=== PATIENT | female | born 1955 | race Caucasian/White ===

== ENCOUNTER 2020-06-01 10:19 | Outpatient (REF) | payer MEDICAID, SELFPAY ==
[2020-06-01 12:23] LABS: Alanine Aminotransferase 16 U/L (0-31); Albumin Level 4.1 g/dL (3.5-5.0); Alkaline Phosphatase 92 U/L (39-117); Anion Gap 14 (12-20); Aspartate Amino Transferase 15 U/L (5-31); Bilirubin Total 0.6 mg/dL (0.0-1.0); Blood Urea Nitrogen 15 mg/dL (9-16); Calcium 9.1 mg/dL (8.4-10.2); Carbon Dioxide 26 mmol/L (22-29); Chloride 104 mmol/L (96-108); Cholesterol 167 mg/dL; Estimated Glomerular Filt Rate > 60; Glucose Random 98 mg/dL (60-115); HDL Cholesterol 58 mg/dL; LDL Cholesterol Calculated 91 mg/dl; Potassium 4.1 mmol/l (3.3-5.1); Sodium 140 mmol/L (135-145); Total Protein 7.5 g/dL (6.5-8.0); Triglycerides 91 mg/dL
[2020-06-01 14:21] LABS: Reflex LDLD? No
== END 2020-06-01 10:20 | disposition home or self-care (01) ==
LOC: HO.LAB 10:19
PROVIDERS: PCP Internal Medicine; Visit Provider Internal Medicine
DX: Z00.00 Encounter for general adult medical examination without abnormal findings (principal); I12.9 Hypertensive chronic kidney disease with stage 1 through stage 4 chronic kidney disease, or unspecified chronic kidney disease; N18.9 Chronic kidney disease, unspecified; E78.00 Pure hypercholesterolemia, unspecified; K21.9 Gastro-esophageal reflux disease without esophagitis; R10.13 Epigastric pain
CPT/HCPCS: 80053; 80061

== ENCOUNTER 2020-06-02 13:14 | Outpatient (REF) | payer MEDICAID, SELFPAY | END 2020-06-02 13:15 | disposition home or self-care (01) | LOC: HO.LNP 13:14 | PROVIDERS: Visit Provider Internal Medicine | DX: Z00.00 Encounter for general adult medical examination without abnormal findings (principal); E78.00 Pure hypercholesterolemia, unspecified; I12.9 Hypertensive chronic kidney disease with stage 1 through stage 4 chronic kidney disease, or unspecified chronic kidney disease; K21.9 Gastro-esophageal reflux disease without esophagitis; R10.13 Epigastric pain | CPT/HCPCS: 87338 ==

== ENCOUNTER 2020-06-28 14:24 | Outpatient (REF) | payer MEDICAID, SELFPAY ==
[2020-07-04 03:18] LABS: HPV 16 RNA NOT DETECTED (NOT DETECTED); HPV mRNA E6/E7 rflx Detected (Not Detected)
== END 2020-06-28 14:25 | disposition home or self-care (01) ==
LOC: HO.LAB 14:24
PROVIDERS: PCP Internal Medicine; Visit Provider Advanced Practice Midwife
DX: Z12.4 Encounter for screening for malignant neoplasm of cervix (principal); R87.619 Unspecified abnormal cytological findings in specimens from cervix uteri
CPT/HCPCS: 87624; 87625; 88141; 88142

== ENCOUNTER 2020-07-31 14:05 | Outpatient (REF) | payer MEDICAID, SELFPAY | END 2020-07-31 14:06 | disposition home or self-care (01) | LOC: HO.LNP 14:05 | PROVIDERS: PCP Internal Medicine; Visit Provider Obstetrics & Gynecology | DX: R87.610 Atypical squamous cells of undetermined significance on cytologic smear of cervix (ASC-US) (principal) | CPT/HCPCS: 57454; 88305 ==

== ENCOUNTER → 2020-08-16 15:52 | Outpatient (BNVA) | payer MEDICAID, SELFPAY | PROVIDERS: PCP Internal Medicine; Visit Provider Obstetrics & Gynecology ==

== ENCOUNTER → 2020-08-30 09:51 | Outpatient (BNVA) | payer MEDICAID, SELFPAY | PROVIDERS: PCP Internal Medicine; Visit Provider Obstetrics & Gynecology | DX: N87.0 Mild cervical dysplasia (principal) | CPT/HCPCS: 99212 ==

== ENCOUNTER 2020-09-05 14:26 | Outpatient (REF) | payer MEDICAID, SELFPAY | END 2020-09-05 14:27 | disposition home or self-care (01) | LOC: HO.HOSX 14:26 | PROVIDERS: Visit Provider Orthopaedic Surgery | DX: Z13.89 Encounter for screening for other disorder (principal) ==

== ENCOUNTER 2020-09-06 14:04 | Outpatient (REF) | payer MEDICAID, SELFPAY ==
--- NOTE | ~2020-09-06 | XR_ITS ---
EXAMINATION: XR KNEE, LEFT XR KNEE STANDING, BILATERAL CLINICAL INFORMATION: Pain left knee. COMPARISON: None TECHNIQUE: AP bilateral knees standing. Left knee 1 view. FINDINGS: AP BILATERAL KNEE: There is a total left knee prosthesis with prosthetic components in satisfactory alignment. There is mild loss of medial compartment right knee joint with a small loose body noted. LEFT KNEE: There is a total left knee prosthesis with prosthetic components in satisfactory alignment. No evidence of loosening. No abnormal joint effusion seen. XR/XR knee LT 2V IMPRESSION: Total left knee prosthesis in satisfactory position. No prosthetic loosening. No abnormal joint effusion. Mild reduction of right knee medial compartment joint space. Likely early osteoarthritis.
--- NOTE | ~2020-09-06 | XR_ITS ---
EXAMINATION: XR KNEE, LEFT XR KNEE STANDING, BILATERAL CLINICAL INFORMATION: Pain left knee. COMPARISON: None TECHNIQUE: AP bilateral knees standing. Left knee 1 view. FINDINGS: AP BILATERAL KNEE: There is a total left knee prosthesis with prosthetic components in satisfactory alignment. There is mild loss of medial compartment right knee joint with a small loose body noted. LEFT KNEE: There is a total left knee prosthesis with prosthetic components in satisfactory alignment. No evidence of loosening. No abnormal joint effusion seen. XR/XR knee standing BI IMPRESSION: Total left knee prosthesis in satisfactory position. No prosthetic loosening. No abnormal joint effusion. Mild reduction of right knee medial compartment joint space. Likely early osteoarthritis.
== END 2020-09-06 14:05 | disposition home or self-care (01) ==
LOC: HO.HOSX 14:04
PROVIDERS: PCP Internal Medicine; Visit Provider Orthopaedic Surgery
DX: M25.562 Pain in left knee (principal); M25.561 Pain in right knee; Z96.652 Presence of left artificial knee joint
CPT/HCPCS: 73560; 73565; 99212

== ENCOUNTER 2020-09-08 08:58 | Outpatient (REF) | payer MEDICAID, SELFPAY ==
[2020-09-08 09:04] VITALS: BP 162/91; PULSE 63; RESP 18; TEMP 36.8; O2SAT 99; BMI 38.5
--- NOTE | 2020-09-08 09:26 | MHC.SHP ---
Pre-Procedural Eval Section A The patient is an INPATIENT: No Changes since office visit: No Cold of Flu in the past 2 weeks, No New Medical Problems, No Changes in Medication and No Patient answered all questions The History & Physical has been completed within 30 days and I have reviewed it.: Yes Section B Chief Complaint: CIN1 Allergies: Allergies Allergy/AdvReac Type Severity Reaction Status Date / Time acetaminophen [Percocet] Allergy Unknown upset Verified 08/30/20 09:54 stomach oxycodone [OXYCODONE] AdvReac Intermediate NAUSEA, Verified 08/30/20 09:54 VOMITING,HEADACHE Plan Diagnosis/Plan: Unchanged I have reviewed the history and physical and performed a pertinent physical examination on my patient. No changes have occurred unless specified.
--- NOTE | 2020-09-08 09:26 | W.PM.OPN ---
Operative Note Operative Note Date of Service: 06/09/20 Narrative: Preop diagnosis: Persistent HARSHAL 1 with negative ECC Operation: LEEP Post op diagnosis: same Anesthesia: paracervical block Complications: none Pathology: Anterior and Posterior cervical lip QBL: minimal Procedure: The patient was put in the dorsal lithotomy position, was prepped and draped in the usual sterile fashion. A sterile speculum was inserted inside the patient vagina. Using Lugol solution the cervix with Dyed with Lugol solution to identifiy the abnormal demarcating line. 10 cc of Marcaine0.5% without epinephrine were given at 2,4 , 8, and 10 o'clock. Using a medium-size loop wire, the anterior cervical lip was excised followed by the posterior cervical lip and endocervix. Hemostasis was assured using cautery and Monsel solution. All instruments were taken out of the patient's vaginal cavity. the patient tolerated the procedure well and was discharged home with the following instructions: call if temperature is above 100.4, vaginal bleeding, abdominal pain or nausea or vomiting. Follow-up in the office in 2 weeks for postop visit
== END 2020-09-08 08:59 | disposition home or self-care (01) ==
LOC: HO.MS 08:58
PROVIDERS: PCP Internal Medicine; Visit Provider Obstetrics & Gynecology
PROC: 0UBC7ZZ Excision of Cervix, Via Natural or Artificial Opening (ICD-10-PCS; CPT 57522; principal; 2020-09-08 09:20)
DX: N87.0 Mild cervical dysplasia (principal); I10 Essential (primary) hypertension; Z88.8 Allergy status to other drugs, medicaments and biological substances; Z79.899 Other long term (current) drug therapy
CPT/HCPCS: 57522; 88307

== ENCOUNTER → 2020-09-21 14:52 | Outpatient (BNVA) | payer MEDICAID, SELFPAY | PROVIDERS: PCP Internal Medicine; Visit Provider Internal Medicine Cardiovascular Disease | DX: N87.0 Mild cervical dysplasia (principal); I25.42 Coronary artery dissection; I10 Essential (primary) hypertension | CPT/HCPCS: 93005; 99212 ==

== ENCOUNTER 2020-12-21 08:08 | Outpatient (REF) | payer MEDICAID, SELFPAY ==
[2020-12-21 08:55] LABS: MANUAL DIFF FLAG NO
[2020-12-21 09:00] LABS: Basophils Absolute Auto 0.1 X10*3/uL (0.0-0.2); Basophils Percent Auto 0.7 % (0-2); Eosinophils Absolute Auto 0.4 X10*3/uL (0.0-0.4); Hemoglobin 12.9 g/dl (12.0-16.0); Imm Gran Abs Auto 0.03 X10*3/uL (0.00-0.03); Imm Gran Pct Auto 0.3 % (0.0-0.4); Lymphocytes Absolute Auto 2.4 X10*3/uL (1.2-4.9); Lymphocytes Percent Auto 24.8 % (20-40); Mean Corpuscular HGB Conc 31.5 g/dl (31.0-35.0); Mean Corpuscular Hemoglobin 27.9 pg (27.0-33.0); Mean Corpuscular Volume 88.7 fL (80-98); Monocytes Absolute Auto 0.6 X10*3/uL (0.1-1.2); Monocytes Percent Auto 6.4 % (2-11); Neutrophils Absolute Auto 6.1 X10*3/uL (2.0-8.3); Neutrophils Percent Auto 63.8 % (45-73); Platelet Count 261 X10*3/uL (160-400); Red Blood Count 4.62 X10*6/uL (4.20-5.50); Red Cell Distribution Width 15.4 % (11.0-16.0); White Blood Count 9.6 X10*3/uL (4.8-10.8)
[2020-12-21 09:35] LABS: Alanine Aminotransferase 17 U/L (0-31); Alkaline Phosphatase 89 U/L (39-117); Anion Gap 11 (12-20); Aspartate Amino Transferase 17 U/L (5-31); Bilirubin Total 0.5 mg/dL (0.0-1.0); Blood Urea Nitrogen 23 mg/dL (9-16); Calcium 9.4 mg/dL (8.4-10.2); Carbon Dioxide 28 mmol/L (22-29); Chloride 106 mmol/L (96-108); Cholesterol 152 mg/dL; Estimated Glomerular Filt Rate > 60; Glucose Random 124 mg/dL (60-115); HDL Cholesterol 55 mg/dL; LDL Cholesterol Calculated 82 mg/dl; Potassium 4.3 mmol/L (3.3-5.1); Sodium 141 mmol/L (135-145); Total Protein 7.1 g/dL (6.5-8.0); Triglycerides 78 mg/dL
[2020-12-21 09:57] LABS: Thyroid Stimulating Hormone 1.44 uIU/mL (0.32-4.0)
== END 2020-12-21 08:09 | disposition home or self-care (01) ==
LOC: HO.LAB 08:08
PROVIDERS: PCP Internal Medicine; Visit Provider Internal Medicine
DX: E78.00 Pure hypercholesterolemia, unspecified (principal); I10 Essential (primary) hypertension; L65.0 Telogen effluvium; M70.52 Other bursitis of knee, left knee
CPT/HCPCS: 36415; 80053; 80061; 84443; 85025

== ENCOUNTER → 2021-04-05 13:38 | Outpatient (BNVA) | payer MEDICAID, SELFPAY | PROVIDERS: PCP Internal Medicine; Visit Provider Internal Medicine Cardiovascular Disease | DX: I25.42 Coronary artery dissection (principal); I10 Essential (primary) hypertension | CPT/HCPCS: 99212 ==

== ENCOUNTER 2021-04-24 15:45 | Outpatient (REF) | payer MEDICAID, SELFPAY ==
--- NOTE | ~2021-04-24 | MM_ITS ---
EXAMINATION: MM SCREENING DIGITAL BREAST TOMOSYNTHESIS, BILATERAL CLINICAL INFORMATION: Screening. Asymptomatic. The lifetime risk of breast cancer based on the Tyrer-Cuzick Model is 3.8%. COMPARISON: Mammography: February 18, 2020 and studies dating back to March 11, 2014 TECHNIQUE: Digital breast tomosynthesis is performed in both the craniocaudal and mediolateral oblique views along with computer-aided detection (CAD). Synthesized 2D images are generated from the tomosynthesis. FINDINGS: There are scattered areas of fibroglandular density (ACR BI-RADS breast composition Category b). There are no significant masses, abnormal calcifications, or other abnormalities. MM/MM tomosynthesis screening BI IMPRESSION: There are no significant changes from prior study. ASSESSMENT: BI-RADS 1: Negative RECOMMENDATION: Routine annual mammography screening. This patient's information was entered into a reminder system with a target due date for their next mammogram.
== END 2021-04-24 15:46 | disposition home or self-care (01) ==
LOC: HO.MAMMO 15:45
PROVIDERS: Visit Provider Internal Medicine
DX: Z12.31 Encounter for screening mammogram for malignant neoplasm of breast (principal)
CPT/HCPCS: 77063; 77067

== ENCOUNTER 2021-05-29 08:25 | Outpatient (REF) | payer MEDICAID, SELFPAY ==
[2021-05-29 08:37] LABS: MANUAL DIFF FLAG NO
[2021-05-29 09:22] LABS: Basophils Absolute Auto 0.1 X10*3/uL (0.0-0.2); Basophils Percent Auto 0.7 % (0-2); Eosinophils Absolute Auto 0.4 X10*3/uL (0.0-0.4); Eosinophils Percent Auto 4.3 % (0-4); Hematocrit 40.7 % (37.0-47.0); Hemoglobin 12.7 g/dl (12.0-16.0); Imm Gran Abs Auto 0.02 X10*3/uL (0.00-0.03); Imm Gran Pct Auto 0.2 % (0.0-0.4); Lymphocytes Absolute Auto 2.4 X10*3/uL (1.2-4.9); Lymphocytes Percent Auto 26.4 % (20-40); Mean Corpuscular HGB Conc 31.2 g/dl (31.0-35.0); Mean Corpuscular Volume 89.8 fL (80.0-98.0); Mean Platelet Volume 10.7 fL (9.4-12.3); Monocytes Absolute Auto 0.6 X10*3/uL (0.1-1.2); Neutrophils Absolute Auto 5.7 x10*3/uL (2.0-8.3); Neutrophils Percent Auto 62.4 % (45-73); Platelet Count 223 X10*3/uL (160-400); Red Blood Count 4.53 X10*6/uL (4.20-5.50); Red Cell Distribution Width 15.8 % (11.0-16.0); White Blood Count 9.1 X10*3/uL (4.8-10.8)
[2021-05-29 10:04] LABS: Alanine Aminotransferase 21 U/L (0-31); Albumin Level 3.9 g/dL (3.5-5.0); Alkaline Phosphatase 88 U/L (39-117); Anion Gap 12 (12-20); Aspartate Amino Transferase 19 U/L (5-31); Bilirubin Total 0.3 mg/dL (0.0-1.0); Blood Urea Nitrogen 19 mg/dL (9-16); Calcium 9.6 mg/dL (8.4-10.2); Carbon Dioxide 28 mmol/L (22-29); Chloride 103 mmol/L (96-108); Cholesterol 152 mg/dL; Estimated Glomerular Filt Rate > 60; Glucose Random 122 mg/dL (60-115); HDL Cholesterol 54 mg/dL; LDL Cholesterol Calculated 83 mg/dl; Potassium 4.4 mmol/L (3.3-5.1); Sodium 139 mmol/L (135-145); Total Protein 7.2 g/dL (6.5-8.0); Triglycerides 79 mg/dL
[2021-05-29 10:10] LABS: Thyroid Stimulating Hormone 1.89 uIU/mL (0.32-4.0)
== END 2021-05-29 08:26 | disposition home or self-care (01) ==
LOC: HO.LAB 08:25
PROVIDERS: PCP Internal Medicine; Visit Provider Internal Medicine
DX: M70.52 Other bursitis of knee, left knee (principal); L65.0 Telogen effluvium; I10 Essential (primary) hypertension; E78.00 Pure hypercholesterolemia, unspecified
CPT/HCPCS: 36415; 80053; 80061; 84443; 85025

== ENCOUNTER → 2021-08-08 14:03 | Outpatient (BNVA) | payer MEDICARE, MEDICAID, SELFPAY | PROVIDERS: PCP Internal Medicine; Referring Provider Internal Medicine; Visit Provider Internal Medicine Cardiovascular Disease | DX: I25.10 Atherosclerotic heart disease of native coronary artery without angina pectoris (principal); I10 Essential (primary) hypertension | CPT/HCPCS: 93005; 99212 ==

== ENCOUNTER 2021-08-21 08:03 | Outpatient (REF) | payer MEDICARE, MEDICAID, SELFPAY ==
[2021-08-21 09:59] LABS: Estimated Average Glucose 131 mg/dL; Hemoglobin A1C 150.0838 umol/L; Hemoglobin A1c % 6.2 %
[2021-08-21 10:16] LABS: Alanine Aminotransferase 16 U/L (0-31); Albumin Level 3.8 g/dL (3.5-5.0); Alkaline Phosphatase 91 U/L (39-117); Anion Gap 11 (12-20); Aspartate Amino Transferase 16 U/L (5-31); Bilirubin Total 0.4 mg/dL (0.0-1.0); Blood Urea Nitrogen 19 mg/dL (9-16); Calcium 9.2 mg/dL (8.4-10.2); Carbon Dioxide 26 mmol/L (22-29); Chloride 109 mmol/L (96-108); Estimated Glomerular Filt Rate > 60; Glucose Random 114 mg/dL (60-115); Potassium 4.4 mmol/L (3.3-5.1); Sodium 142 mmol/L (135-145); Total Protein 7.1 g/dL (6.5-8.0)
== END 2021-08-21 08:04 | disposition home or self-care (01) ==
LOC: HO.LAB 08:03
PROVIDERS: PCP Internal Medicine; Visit Provider Internal Medicine
DX: Z00.01 Encounter for general adult medical examination with abnormal findings (principal); R73.01 Impaired fasting glucose; I10 Essential (primary) hypertension; G47.33 Obstructive sleep apnea (adult) (pediatric); E78.00 Pure hypercholesterolemia, unspecified
CPT/HCPCS: 36415; 80053; 83036

== ENCOUNTER 2021-08-31 09:38 | Outpatient (REF) | payer MEDICARE, MEDICAID, SELFPAY ==
--- NOTE | ~2021-08-31 | XR_ITS ---
EXAMINATION: XR KNEE-BILATERAL FRONTAL ONLY XR LEFT KNEE-3 VIEWS CLINICAL INFORMATION: Pain in unspecified knee. COMPARISON: 09/06/2020. TECHNIQUE: Upright frontal views of both knees and 3 views of the left knee were obtained. FINDINGS: Left knee: Postsurgical changes of total left knee arthroplasty is noted with intact hardware and satisfactory alignment. No significant change. Right knee: Mild osteoarthrosis of the medial compartment is noted, similar to prior study. XR/XR knee LT 2V IMPRESSION: No significant change since prior study dated 09/06/2020.
--- NOTE | ~2021-08-31 | XR_ITS ---
EXAMINATION: XR KNEE-BILATERAL FRONTAL ONLY XR LEFT KNEE-3 VIEWS CLINICAL INFORMATION: Pain in unspecified knee. COMPARISON: 09/06/2020. TECHNIQUE: Upright frontal views of both knees and 3 views of the left knee were obtained. FINDINGS: Left knee: Postsurgical changes of total left knee arthroplasty is noted with intact hardware and satisfactory alignment. No significant change. Right knee: Mild osteoarthrosis of the medial compartment is noted, similar to prior study. XR/XR knee standing BI IMPRESSION: No significant change since prior study dated 09/06/2020.
== END 2021-08-31 09:39 | disposition home or self-care (01) ==
LOC: HO.HOSX 09:38
PROVIDERS: Visit Provider Orthopaedic Surgery
DX: M25.561 Pain in right knee (principal); Z96.652 Presence of left artificial knee joint
CPT/HCPCS: 20610; 73560; 73565; 99212; J1100

== ENCOUNTER 2021-12-03 07:04 | Outpatient (REF) | payer MEDICARE, SELFPAY ==
[2021-12-03 08:30] LABS: Estimated Average Glucose 137 mg/dL; Hemoglobin A1c % 6.4 %
[2021-12-03 08:43] LABS: Alanine Aminotransferase 19 U/L (0-31); Alkaline Phosphatase 98 U/L (39-117); Anion Gap 15 (12-20); Aspartate Amino Transferase 16 U/L (5-31); Bilirubin Total 0.4 mg/dL (0.0-1.0); Blood Urea Nitrogen 22 mg/dL (9-16); Calcium 9.6 mg/dL (8.4-10.2); Carbon Dioxide 25 mmol/L (22-29); Chloride 104 mmol/L (96-108); Cholesterol 139 mg/dL; Estimated Glomerular Filt Rate 60; Glucose Random 134 mg/dL (60-115); HDL Cholesterol 45 mg/dL; LDL Cholesterol Calculated 80 mg/dl; Potassium 4.3 mmol/L (3.3-5.1); Sodium 140 mmol/L (135-145); Total Protein 7.4 g/dL (6.5-8.0); Triglycerides 71 mg/dL
== END 2021-12-03 07:05 | disposition home or self-care (01) ==
LOC: HO.LAB 07:04
PROVIDERS: PCP Internal Medicine; Visit Provider Internal Medicine
DX: E78.00 Pure hypercholesterolemia, unspecified (principal); I10 Essential (primary) hypertension; M70.51 Other bursitis of knee, right knee; R73.01 Impaired fasting glucose
CPT/HCPCS: 36415; 80053; 80061; 83036

== ENCOUNTER 2021-12-14 13:32 | Outpatient (REF) | payer MEDICARE, SELFPAY ==
[2021-12-19 17:02] LABS: HPV mRNA E6/E7 rflx Not Detected (Not Detected)
== END 2021-12-14 13:33 | disposition home or self-care (01) ==
LOC: HO.LAB 13:32
PROVIDERS: Visit Provider Advanced Practice Midwife
DX: Z01.419 Encounter for gynecological examination (general) (routine) without abnormal findings (principal); Z11.51 Encounter for screening for human papillomavirus (HPV); Z87.42 Personal history of other diseases of the female genital tract
CPT/HCPCS: 87624; 88142

== ENCOUNTER → 2021-12-17 08:43 | Outpatient (BNVA) | payer MEDICARE, MEDICAID, SELFPAY | PROVIDERS: PCP Internal Medicine; Visit Provider Orthopaedic Surgery | DX: M17.11 Unilateral primary osteoarthritis, right knee (principal); Z96.652 Presence of left artificial knee joint | CPT/HCPCS: 99212 ==

== ENCOUNTER → 2022-04-09 14:44 | Outpatient (BNVA) | payer MEDICARE, MEDICAID, SELFPAY | PROVIDERS: PCP Internal Medicine; Referring Provider Internal Medicine; Visit Provider Nurse Practitioner Family | DX: I10 Essential (primary) hypertension (principal); I35.0 Nonrheumatic aortic (valve) stenosis; I25.42 Coronary artery dissection; E78.00 Pure hypercholesterolemia, unspecified | CPT/HCPCS: 99212 ==

== ENCOUNTER 2022-04-16 08:31 | Outpatient (REF) | payer MEDICARE, MEDICAID, SELFPAY ==
[2022-04-16 09:38] LABS: Estimated Average Glucose 137 mg/dL; Hemoglobin A1c % 6.4 %
[2022-04-16 09:50] LABS: Alanine Aminotransferase 13 U/L (0-31); Alkaline Phosphatase 84 U/L (39-117); Anion Gap 15 (12-20); Aspartate Amino Transferase 15 U/L (5-31); Bilirubin Total 0.7 mg/dL (0.0-1.0); Blood Urea Nitrogen 14 mg/dL (9-16); Calcium 9.2 mg/dL (8.4-10.2); Carbon Dioxide 26 mmol/L (22-29); Chloride 104 mmol/L (96-108); Estimated Glomerular Filt Rate > 60; Glucose Random 136 mg/dL (60-115); Potassium 4.3 mmol/L (3.3-5.1); Sodium 141 mmol/L (135-145); Total Protein 7.3 g/dL (6.5-8.0)
== END 2022-04-16 08:32 | disposition home or self-care (01) ==
LOC: HO.LAB 08:31
PROVIDERS: PCP Internal Medicine; Visit Provider Internal Medicine
DX: E78.00 Pure hypercholesterolemia, unspecified (principal); I10 Essential (primary) hypertension; R73.01 Impaired fasting glucose
CPT/HCPCS: 36415; 80053; 83036

== ENCOUNTER 2022-04-30 15:49 | Outpatient (REF) | payer MEDICARE, MEDICAID, SELFPAY ==
--- NOTE | ~2022-04-30 | MM_ITS ---
EXAMINATION: MM SCREENING DIGITAL BREAST TOMOSYNTHESIS, BILATERAL CLINICAL INFORMATION: Screening. Asymptomatic. The lifetime risk of breast cancer based on the Tyrer-Cuzick Model is 4.1%. COMPARISON: Mammography: April 24, 2021 and studies dating back to April 12, 2016 TECHNIQUE: Digital breast tomosynthesis is performed in both the craniocaudal and mediolateral oblique views along with computer-aided detection (CAD). Synthesized 2D images are generated from the tomosynthesis. FINDINGS: There are scattered areas of fibroglandular density (ACR BI-RADS breast composition Category b). There are no significant masses, abnormal calcifications, or other abnormalities. MM/MM tomosynthesis screening BI IMPRESSION: No significant changes from prior exam. ASSESSMENT: BI-RADS 1: Negative RECOMMENDATION: Routine annual mammography screening. This patient's information was entered into a reminder system with a target due date for their next mammogram.
== END 2022-04-30 15:50 | disposition home or self-care (01) ==
LOC: HO.MAMMO 15:49
PROVIDERS: Visit Provider Internal Medicine
DX: Z12.31 Encounter for screening mammogram for malignant neoplasm of breast (principal)
CPT/HCPCS: 77063; 77067

== ENCOUNTER 2022-07-08 10:11 | Outpatient (REF) | payer MEDICARE, MEDICAID, SELFPAY ==
[2022-07-08 10:26] LABS: MANUAL DIFF FLAG NO
[2022-07-08 11:01] LABS: Basophils Absolute Auto 0.1 X10*3/uL (0.0-0.2); Basophils Percent Auto 0.5 % (0-2); Eosinophils Absolute Auto 0.4 X10*3/uL (0.0-0.4); Eosinophils Percent Auto 4.2 % (0-4); Hematocrit 40.1 % (37.0-47.0); Hemoglobin 12.6 g/dl (12.0-16.0); Imm Gran Abs Auto 0.03 X10*3/uL (0.00-0.03); Imm Gran Pct Auto 0.3 % (0.0-0.4); Lymphocytes Absolute Auto 2.3 X10*3/uL (1.2-4.9); Lymphocytes Percent Auto 25.7 % (20-40); Mean Corpuscular HGB Conc 31.4 g/dl (31.0-35.0); Mean Corpuscular Volume 86.1 fL (80.0-98.0); Mean Platelet Volume 10.8 fL (9.4-12.3); Monocytes Absolute Auto 0.5 X10*3/uL (0.1-1.2); Monocytes Percent Auto 5.7 % (2-11); Neutrophils Absolute Auto 5.8 x10*3/uL (2.0-8.3); Neutrophils Percent Auto 63.6 % (45-73); Platelet Count 242 X10*3/uL (160-400); Red Blood Count 4.66 X10*6/uL (4.20-5.50); Red Cell Distribution Width 15.8 % (11.0-16.0); White Blood Count 9.1 X10*3/uL (4.8-10.8)
[2022-07-08 11:10] LABS: Estimated Average Glucose 146 mg/dL; Hemoglobin A1c % 6.7 %
[2022-07-08 11:39] LABS: Alanine Aminotransferase 14 U/L (0-31); Albumin Level 3.9 g/dL (3.5-5.0); Alkaline Phosphatase 80 U/L (39-117); Anion Gap 12 (12-20); Aspartate Amino Transferase 16 U/L (5-31); Bilirubin Total 0.5 mg/dL (0.0-1.0); Blood Urea Nitrogen 18 mg/dL (9-16); Calcium 9.3 mg/dL (8.4-10.2); Carbon Dioxide 28 mmol/L (22-29); Chloride 102 mmol/L (96-108); Cholesterol 160 mg/dL; Estimated Glomerular Filt Rate > 60; Glucose Random 132 mg/dL (60-115); HDL Cholesterol 44 mg/dL; LDL Cholesterol Calculated 98 mg/dl; Potassium 3.7 mmol/L (3.3-5.1); Sodium 138 mmol/L (135-145); Total Protein 7.2 g/dL (6.5-8.0); Triglycerides 92 mg/dL
[2022-07-08 11:40] LABS: Creatinine Urine 108.76 mg/dL; Microalbum/Creatinine Ratio Ur 4.5 ug/mg cr
[2022-07-08 12:01] LABS: Thyroid Stimulating Hormone 1.89 uIU/mL (0.32-4.0)
== END 2022-07-08 10:12 | disposition home or self-care (01) ==
LOC: HO.LAB 10:11
PROVIDERS: PCP Internal Medicine; Visit Provider Internal Medicine
DX: E78.00 Pure hypercholesterolemia, unspecified (principal); I10 Essential (primary) hypertension; R73.01 Impaired fasting glucose
CPT/HCPCS: 36415; 80053; 80061; 82043; 83036; 84443; 85025

== ENCOUNTER 2022-10-09 09:02 | Outpatient (REF) | payer MEDICARE, MEDICAID, SELFPAY ==
[2022-10-09 10:04] LABS: Alanine Aminotransferase 16 U/L (0-31); Alkaline Phosphatase 96 U/L (39-117); Anion Gap 12 (12-20); Aspartate Amino Transferase 15 U/L (5-31); Bilirubin Total 0.4 mg/dL (0.0-1.0); Blood Urea Nitrogen 18 mg/dL (9-16); Calcium 9.3 mg/dL (8.4-10.2); Carbon Dioxide 28 mmol/L (22-29); Chloride 105 mmol/L (96-108); Estimated Glomerular Filt Rate > 60; Glucose Random 126 mg/dL (60-115); Potassium 4.6 mmol/L (3.3-5.1); Sodium 140 mmol/L (135-145); Total Protein 7.2 g/dL (6.5-8.0)
[2022-10-09 10:19] LABS: Estimated Average Glucose 140 mg/dL; Hemoglobin A1c % 6.5 %
== END 2022-10-09 09:03 | disposition home or self-care (01) ==
LOC: HO.LAB 09:02
PROVIDERS: PCP Internal Medicine; Visit Provider Internal Medicine
DX: Z00.00 Encounter for general adult medical examination without abnormal findings (principal); E11.9 Type 2 diabetes mellitus without complications; E78.00 Pure hypercholesterolemia, unspecified; G47.33 Obstructive sleep apnea (adult) (pediatric)
CPT/HCPCS: 36415; 80053; 83036

== ENCOUNTER → 2022-12-03 13:25 | Outpatient (REF) | payer MEDICARE, MEDICAID, SELFPAY ==
--- NOTE | 2022-12-03 13:28 | CA_ITS ---
Transthoracic Echocardiogram Patient (Last, First, Middle): Lydia Funez, Gender: Female Date of : 1955 Age: 67 Procedure Date: 12/03/2022 Procedure Type: Transthoracic Echocardiogram Location: OP Height: 160. cm Weight: 107.05 kg BSA: 2.07 m2 Heart Rate: bpm BP: 130 / 80 mmHg Sand Carrier: TO Referring MD: Su Erwin NUCLEAR ENGINEERING TECHNICIAN-C Symptoms: I10 - Essential (primary) hypertension Study Quality: Technically Difficult/Contrast ECG Rhythm: Sinus Conclusions: - The left ventricular systolic function is normal. The calculated ejection fraction is 70% by biplane method. - Aortic valve stenosis, but no significant stenosis. Findings Procedure Information Contrast agent, definity, is being given per protocol without apparent complications. Left Ventricle Normal left ventricular cavity size. The left ventricular systolic function is normal. The calculated ejection fraction is 70% by biplane method. There is no evidence of regional wall motion abnormalities. Diastolic function is normal for age. There is mild septal and mild basal asymmetric hypertrophy. Right Ventricle Normal right ventricular cavity size and systolic function. Atria Both atria are normal in size. Aortic Valve There is a normal trileaflet aortic valve. There is mild calcification of the aortic valve. There is no aortic valve regurgitation. No significant aortic stenosis. Mitral Valve The mitral valve appears normal. There is no mitral valve regurgitation. There is no mitral valve stenosis. Pulmonic Valve The pulmonic valve is likely normal. Tricuspid Valve There is mild tricuspid valve regurgitation. There is no evidence of pulmonary hypertension. Great Vessels The asc aorta is normal in size. Small plaque is seen in the sino tubular ridge. Venous The inferior vena cava is normal in size and collapses greater than 50% with inspiration. Pericardium/Pleural There is no evidence of pericardial effusion. Prior Study Comparison No significant change compared to prior study dated: 04/20/2019. Measurements 2D Linear Measurements IVSd: 1.17 0.6-0.9/0.6-1.0 cm LVIDd: 4.75 3.9-5.3/4.2-5.9 cm LVIDd Index: 2.29 2.4-3.2/2.2-3.1 cm/m2 LVIDs: 2.73 2.0-3.6 cm LVPWd: 0.97 0.7-1.1 cm LA Diam: 4.10 2.7-3.8/3.0-4.0 cm LAIDs Index: 1.98 1.5-2.3 cm/m2 LV Mass: 228.41 67-162/88-224 g LV Mass Index: 110.34 43-95/49-115 g/m2 LVOT Diam: 2.10 3.0+(-)1.3 cm 2D Systolic Function EF 4C: 67.60 >55% EF 2C: 71.90 >55% EF BiP: 70.10 >55% Mitral Valve MV Pk E: 0.44 MV PK A: 0.56 MV Decel Time: 241.00 E/A: 0.80 E'Lateral: 8.16 E'Medial: 5.55 E/E' Med: 7.90 E/E' Lat: 5.40 PHT: 71.00 MVA PHT: 3.10 Decel Crenshaw: 1.81 Aortic Valve AoV Pk Romario: 2.10 AoV Mn Romario: 1.33 AoV VTI: 0.47 AoV Pk Grad: 18.00 Aov Mn Grad: 9.00 CLARISA Cont.VTI: 1.89 LVOT LVOT Pk Romario: 0.97 LVOT Mn Romario: 0.76 LVOT VTI: 0.26 LVOT Pk Grad: 4.00 LVOT Mn Grad: 2.00 LVOT Diam: 2.10 LVOT Area: 3.46 Diastolic Function MV Pk E: 0.44 MV Pk A: 0.56 E/A: 0.80 E'Medial: 5.55 E/E' Med: 7.90 E' Laterial: 8.16 E/E' Lat: 5.40 Right Ventricle TAPSE (mm): 23.30 TVS' Romario: 12.00 Tricuspid Valve TR Pk Romario: 2.52 TR Pk Grad: 25.00 RA Press: 3.00 RVSP: 28.00 Great Vessels Aorta Sinus of Valsalva: 3.44 2.0-3.[address] Ridge: 2.27 1.7-3.4 cm Ao Asc: 3.40 2.1-3.4 cm Updated in Other Vendor System with Status of Final Scott Obrien MD electronically signed on 12/04/2022 8:38:46 AM with status of Final
== END ==
LOC: HO.CARD 13:25
PROVIDERS: PCP Internal Medicine; Visit Provider Nurse Practitioner Family
DX: I10 Essential (primary) hypertension (principal); I35.0 Nonrheumatic aortic (valve) stenosis
CPT/HCPCS: 93306; Q9957

== ENCOUNTER 2023-01-07 13:48 | Outpatient (AMB) | payer MEDICARE, MEDICAID, SELFPAY ==
--- NOTE | 2023-01-07 13:52 | MHC.OFFVIS ---
Intake Vital Signs 01/07/23 13:53 Height 5 ft 2 in Weight 231 lb 7.766 oz BMI 42.3 BP 140/70 H Blood Pressure Location Lt brachial Position Sitting Pulse 55 Intake Visit Reasons: 6 month follow up Intake Note: 6 month f/u Preventive Medicine Specialist Required: No Allergies acetaminophen [Percocet] Allergy (Unknown, Verified 01/07/23 14:06) upset stomach oxycodone [OXYCODONE] Adverse Reaction (Intermediate, Verified 01/07/23 14:06) NAUSEA, VOMITING,HEADACHE Medication List - Last Reconciled 01/07/23 by Su Erwin NP-C amlodipine-benazepril 10-40 mg 1 cap PO DAILY aspirin 81 mg PO DAILY carvedilol 25 mg PO BID hydrochlorothiazide 25 mg PO DAILY metformin 1,000 mg PO BID rosuvastatin 40 mg PO DAILY HPI 6 month follow up HPI Details Lydia is a 66-year-old female with past medical history of hypertension, hyperlipidemia, aortic stenosis, coronary artery dissection with mild and STEMI in the past who presents for follow-up. Today she reports she has been feeling well since her last visit. She has no cardiac questions or concerns. She denies chest discomfort at rest or with activity. No shortness of breath, palpitations, PND, orthopnea or edema. No dizziness, presyncope, syncope, falls. She has been walking more and says she is going to work on weight loss. Her goal is to be off of all her medications in the future. [facility] Medical History Anemia Arthritis HARSHAL I (cervical intraepithelial neoplasia I) High cholesterol HTN (hypertension) Rheumatism Sleep apnea Surgical History History of knee surgery Hx of tubal ligation Family History Mother HTN (hypertension) Social History Household Members Other:: daughter Housing: Apartment Alcohol intake: never Patient Tobacco Use Status: Never used Tobacco Gender identity: Female Female Reproductive History Menstrual Age of Menarche: 14 Review of Systems Const All systems reviewed & are unremarkable except as noted in HPI and below Physical Exam Vital Signs: Last Vital Signs Pulse 55 01/07/23 13:53 BP 140/70 H 01/07/23 13:53 BMI result Body Mass Index 42.3 Const Other: Ambulates with cane General: cooperative, healthy appearing, comfortable and no acute distress Orientation/consciousness: patient oriented x3 Neck Neck: Yes normal visual inspection and Yes no JVD Resp Effort & Inspection: normal respiratory effort Auscultation: clear to auscultation bilaterally, no crackles, no rales, no rhonchi and no wheezes Cardio Jugular venous distension: no JVD Rate: regular rate Rhythm: regular rhythm Heart sounds: S1 normal heart sound present, S2 normal heart sound present, no murmurs and no rubs Neuro General: patient oriented x3 Extrem General: Yes normal to inspection, No no pedal edema and No calf tenderness Psych Appearance: grossly normal Mental Status: mental status grossly normal Speech and movement: Normal speech and movement present Office Procedures EKG Details: today, read by me, sinus bradycardia, low-voltage QRS, rate 55, QTC 428 millisecond [id number], Complete Assessment & Plan Assessment & Plan (1) Coronary artery dissection: Comment: Stable Code(s): I25.42 - Coronary artery dissection Plan: History of NSTEMI, thought to be secondary to coronary artery dissection, managed medically based on prior notes. Last echo done 04/20/2019 shows normal EF, mild , no regional wall motion abnormalities. EKG done today showing sinus bradycardia mild sinus arrhythmia, low-voltage QRS,heart rate 55, unchanged from prior EKG No reports of anginal sounding symptoms. Activity limited by bilateral knee discomfort but has been walking more recently, continues to use cane. Signs and symptoms of angina reviewed with her. Continue risk factor modification with good blood pressure, cholesterol and weight control. she tells me she is going to work on weight loss. l. Continue aspirin, rosuvastatin and carvedilol. Cardiology follow-up in 1 year, sooner if needed (2) High cholesterol: Code(s): E78.00 - Pure hypercholesterolemia, unspecified Plan: LDL goal less than 100, ideally less than 70 and patient with hyperlipidemia and coronary artery dissection. Labs done on 12/03/2021 show LDL 80. labs 07/08/2022 show LDL 98. She is working on increased physical activity and weight loss. Continue rosuvastatin. (3) Aortic stenosis: Code(s): I35.0 - Nonrheumatic aortic (valve) stenosis Plan: Echo from 2019 shows mild aortic stenosis. Faint murmur noted on examination, heart tones distant. echocardiogram done 12/03/2022 showing EF 70%, aortic valve stenosis however no significant stenosis. Will follow with periodic echoes. (4) HTN (hypertension): Code(s): I10 - Essential (primary) hypertension Plan: initially mildly elevated at 1 40/70. Recheck done by me 128/78. Continue on current med management including amlodipine, hydrochlorothiazide and carvedilol. Coding Level of Care Code Est Pt Level 4 (80399) Diagnoses Coronary artery dissection I25.42 High cholesterol E78.00 Aortic stenosis I35.0 HTN (hypertension) I10 CPT Codes EKG - CPT: [id number], Complete ([id number]) Time Spent (min) 26 Comment chart review, documentation, interview, assessment
[2023-01-07 13:53] VITALS: BP 140/70; PULSE 55; BMI 42.3
== END 2023-01-07 14:31 | disposition home or self-care (01) ==
PROVIDERS: PCP Internal Medicine; Referring Provider Internal Medicine; Visit Provider Nurse Practitioner Family
DX: I25.42 Coronary artery dissection (principal); E78.00 Pure hypercholesterolemia, unspecified; I35.0 Nonrheumatic aortic (valve) stenosis; I10 Essential (primary) hypertension
CPT/HCPCS: 93010; 99214

== ENCOUNTER → 2023-01-07 13:48 | Outpatient (BNVA) | payer MEDICARE, MEDICAID, SELFPAY | PROVIDERS: PCP Internal Medicine; Referring Provider Internal Medicine; Visit Provider Nurse Practitioner Family | DX: I25.42 Coronary artery dissection (principal); I35.0 Nonrheumatic aortic (valve) stenosis; I10 Essential (primary) hypertension; E78.00 Pure hypercholesterolemia, unspecified | CPT/HCPCS: 93005; 99212 ==

== ENCOUNTER 2023-01-09 08:19 | Outpatient (REF) | payer MEDICARE, MEDICAID, SELFPAY ==
[2023-01-09 09:54] LABS: Estimated Average Glucose 131 mg/dL; Hemoglobin A1C 149.1455 umol/L; Hemoglobin A1c % 6.2 %
[2023-01-09 09:55] LABS: Alanine Aminotransferase 16 U/L (0-31); Albumin Level 3.9 g/dL (3.5-5.0); Alkaline Phosphatase 76 U/L (39-117); Anion Gap 12 (12-20); Aspartate Amino Transferase 15 U/L (5-31); Bilirubin Total 0.6 mg/dL (0.0-1.0); Blood Urea Nitrogen 16 mg/dL (9-16); Calcium 9.4 mg/dL (8.4-10.2); Carbon Dioxide 27 mmol/L (22-29); Chloride 104 mmol/L (96-108); Cholesterol 142 mg/dL; Estimated Glomerular Filt Rate > 60; Glucose Random 116 mg/dL (60-115); HDL Cholesterol 48 mg/dL; LDL Cholesterol Calculated 72 mg/dl; Potassium 3.7 mmol/L (3.3-5.1); Sodium 139 mmol/L (135-145); Total Protein 7.4 g/dL (6.5-8.0); Triglycerides 110 mg/dL
== END 2023-01-09 08:20 | disposition home or self-care (01) ==
LOC: HO.LAB 08:19
PROVIDERS: PCP Internal Medicine; Visit Provider Internal Medicine
DX: E11.9 Type 2 diabetes mellitus without complications (principal); E78.00 Pure hypercholesterolemia, unspecified; G47.33 Obstructive sleep apnea (adult) (pediatric); I10 Essential (primary) hypertension
CPT/HCPCS: 36415; 80053; 80061; 83036

== ENCOUNTER 2023-04-09 08:24 | Outpatient (REF) | payer MEDICARE, MEDICAID, SELFPAY | END 2023-04-09 08:25 | disposition home or self-care (01) | LOC: HO.LAB 08:24 | PROVIDERS: PCP Internal Medicine; Visit Provider Internal Medicine | DX: E11.9 Type 2 diabetes mellitus without complications (principal); E66.9 Obesity, unspecified; E78.00 Pure hypercholesterolemia, unspecified; I10 Essential (primary) hypertension | CPT/HCPCS: 36415; 80053; 83036 ==

== ENCOUNTER 2023-07-10 07:15 | Outpatient (REF) | payer MEDICARE, SELFPAY ==
[2023-07-10 08:43] LABS: Estimated Average Glucose 134 mg/dL; Hemoglobin A1c % 6.3 % (<6.0)
[2023-07-10 09:06] LABS: Alanine Aminotransferase 15 U/L (0-31); Albumin Level 3.9 g/dL (3.5-5.0); Alkaline Phosphatase 78 U/L (39-117); Anion Gap 15 (12-20); Aspartate Amino Transferase 14 U/L (5-31); Bilirubin Total 0.4 mg/dL (0.0-1.0); Blood Urea Nitrogen 23 mg/dL (9-16); Calcium 9.7 mg/dL (8.4-10.2); Carbon Dioxide 25 mmol/L (22-29); Chloride 106 mmol/L (96-108); Cholesterol 141 mg/dL (<200); Estimated Glomerular Filt Rate > 60; Glucose Random 132 mg/dL (60-115); HDL Cholesterol 50 mg/dL (>40); LDL Cholesterol Calculated 74 mg/dL (<100); Potassium 3.8 mmol/L (3.3-5.1); Sodium 142 mmol/L (135-145); Total Protein 7.8 g/dL (6.5-8.0); Triglycerides 85 mg/dL (<150)
[2023-07-10 09:08] LABS: Microalbum/Creatinine Ratio Ur 6.6 ug/mg cr (<30)
[2023-07-10 09:31] LABS: Vitamin B12 735 pg/mL (200-900)
== END 2023-07-10 07:16 | disposition home or self-care (01) ==
LOC: HO.LAB 07:15
PROVIDERS: PCP Internal Medicine; Visit Provider Internal Medicine
DX: E11.9 Type 2 diabetes mellitus without complications (principal); E66.9 Obesity, unspecified; E78.00 Pure hypercholesterolemia, unspecified; G47.33 Obstructive sleep apnea (adult) (pediatric); I10 Essential (primary) hypertension
CPT/HCPCS: 36415; 80053; 80061; 82043; 82570; 82607; 83036

== ENCOUNTER 2023-09-24 14:17 | Outpatient (REF) | payer MEDICARE, SELFPAY ==
[2023-10-01 03:29] LABS: HPV mRNA E6/E7 rflx Not Detected (Not Detected)
== END 2023-09-24 14:18 | disposition home or self-care (01) ==
LOC: HO.LNP 14:17
PROVIDERS: PCP Internal Medicine; Visit Provider Advanced Practice Midwife
DX: Z01.419 Encounter for gynecological examination (general) (routine) without abnormal findings (principal); Z11.51 Encounter for screening for human papillomavirus (HPV)
CPT/HCPCS: 87624; 88142

== ENCOUNTER 2023-09-24 14:17 | Outpatient (AMB) | payer MEDICARE, SELFPAY ==
--- NOTE | 2023-09-24 14:30 | MHC.OFFVIS ---
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 She is doing well with no concerns. Attempting to eat a healthy diet with calcium and vitamins and stays active with exercise. Currently sexually active. Denies any vaginal dryness or irritation. STI testing offered; she accepts. Last pap smear; Hx CINI, last pap neg/neg. Last mammogram; . Colonoscopy is UTD. Denies any family history of breast, ovarian or colon cancer. [facility] Medical History HARSHAL I (cervical intraepithelial neoplasia I) High cholesterol Anemia Rheumatism Arthritis Sleep apnea HTN (hypertension) Surgical History History of knee surgery Hx of tubal ligation Family History Mother HTN (hypertension) Social History Household Members Other:: daughter Housing: Apartment Alcohol intake: never Patient Tobacco Use Status: Never used Tobacco Gender identity: Female Female Reproductive History Menstrual Age of Menarche: 14 control method: permanent sterilization Permanent Sterilization: BTL Total pregnancies: 5 Full term: 4 Number of Living Children: 4 Ab spontaneous: 1 Date of last pap smear: 12/14/21 (neg pap and hpv) History of abnormal pap smear: Yes (09/14 colpo harshal 1 01/15 ascus +hpv 03/18 colpo) Date of Mammogram: 04/30/22 (Birad 1) Review of Systems Const All systems reviewed & are unremarkable except as noted in HPI and below Reports as per HPI Eyes Reports no additional complaints ENT Reports no additional complaints Card Reports no additional complaints Resp Reports no additional complaints GI Reports as per HPI and Reports no additional complaints Reports as per HPI Musc Reports no additional complaints Skin/Breast Reports as per HPI Neuro Reports no additional complaints Psych Reports no additional complaints Endo Reports no additional complaints Jeramy/Lymph Reports no additional complaints Aller/Immun Reports no additional complaints Physical Exam Vital Signs: Last Vital Signs BP 120/78 09/24/23 14:32 BMI result Body Mass Index 42.8 Const General: cooperative, healthy appearing, no acute distress, well developed and alert Orientation/consciousness: patient oriented x3 HEENT Head: Yes normal to inspection Eyes General: appearance normal, both eyes and all related structures Neck Neck: Yes normal visual inspection Thyroid: Thyroid normal Chest Chest palpation & inspection: normal inspection of the chest and other (no puckering, dimpling, peau de orange, retraction, discharge, masses) Breast/axilla inspection: normal inspection of the breasts Breast/axilla palpation: normal palpation of the breasts Resp Effort & Inspection: normal respiratory effort GI Inspection: Yes normal to inspection and Yes obesity Palpation (GI): Soft to palpation Rectal Exam - Female: deferred General: Yes bladder normal to palpation External Female Exam: normal external appearance and normal appearance of the urethra Speculum Exam - Vagina: normal appearance of the vagina, normal palpation, normal vaginal discharge and vagina atrophic Speculum Exam - Cervix: normal appearance of the cervix, normal palpation and Other cervical findings present (Post LEEP appearance, bled slightly with Pap, os fused) Bimanual exam- vagina & uterus: normal bimanual exam, normal palpation, uterine size normal, bladder normal to palpation, normal palpation and non-tender Bimanual Exam- Adnexa, other: no masses Skin General skin exam: no rashes or lesions noted Rashes: no rashes Neuro General: patient oriented x3 Cognition (Neuro): normal cognition Extrem General: Yes normal to inspection Psych Attitude: cooperative Thought process: Normal thought process present Assessment & Plan Assessment & Plan (1) Well woman exam with routine gynecological exam: Code(s): Z01.419 - Encounter for gynecological examination (general) (routine) without abnormal findings Plan Discussed: Current recommendations for pap smears per ASCCP guidelines. Breast awareness, periodic self breast exams and yearly mammogram. Maintain a healthy lifestyle, well balanced diet including Calcium 1,200 mg and Vitamin D 600 IU daily, and routine exercise. Await Pap results for plan of care. Contact the office with any postmenopausal bleeding. Patient verbalizes understanding and agrees to the plan of care. She was given opportunity to ask questions and all questions were answered to the best of my ability. 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 This note is constructed using voice recognition software. While every effort has been made to ensure accuracy, aspnet developer errors may have been included. Orders: Orders MM tomosynthesis screening BI Today Z12.31 - Encounter for screening mammogram for malignant neoplasm of breast Coding Level of Care Code Est Pt Prev Care >65y(98216) Diagnoses Well woman exam with routine gynecological exam Z01.419
[2023-09-24 14:32] VITALS: BP 120/78; BMI 42.8
== END 2023-09-24 15:16 | disposition home or self-care (01) ==
LOC: HO.HWS 14:17
PROVIDERS: PCP Internal Medicine; Visit Provider Advanced Practice Midwife
DX: Z01.419 Encounter for gynecological examination (general) (routine) without abnormal findings (principal)
CPT/HCPCS: 99397

== ENCOUNTER 2023-10-15 13:59 | Outpatient (REF) | payer MEDICARE, SELFPAY | END 2023-10-15 14:00 | disposition home or self-care (01) | LOC: HO.MAMMO 13:59 | PROVIDERS: PCP Internal Medicine; Visit Provider Advanced Practice Midwife | DX: Z12.31 Encounter for screening mammogram for malignant neoplasm of breast (principal) | CPT/HCPCS: 77063; 77067 ==

== ENCOUNTER → 2023-10-15 14:45 | Outpatient (BNV) | payer MEDICARE, SELFPAY | PROVIDERS: PCP Internal Medicine; Visit Provider Radiology Diagnostic Radiology | DX: Z12.31 Encounter for screening mammogram for malignant neoplasm of breast (principal) | CPT/HCPCS: 77063; 77067 ==

== ENCOUNTER 2023-11-05 07:33 | Outpatient (REF) | payer MEDICARE, SELFPAY ==
[2023-11-05 08:20] LABS: Estimated Average Glucose 131 mg/dL; Hemoglobin A1C 144.4488 umol/L; Hemoglobin A1c % 6.2 % (<6.0)
[2023-11-05 08:33] LABS: Alanine Aminotransferase 16 U/L (0-31); Albumin Level 3.8 g/dL (3.5-5.0); Alkaline Phosphatase 74 U/L (39-117); Anion Gap 13 (12-20); Aspartate Amino Transferase 15 U/L (5-31); Bilirubin Total 0.5 mg/dL (0.0-1.0); Blood Urea Nitrogen 17 mg/dL (9-16); Calcium 9.5 mg/dL (8.4-10.2); Carbon Dioxide 27 mmol/L (22-29); Chloride 106 mmol/L (96-108); Estimated Glomerular Filt Rate > 60; Glucose Random 121 mg/dL (60-115); Potassium 3.9 mmol/L (3.3-5.1); Sodium 142 mmol/L (135-145); Total Protein 7.5 g/dL (6.5-8.0)
== END 2023-11-05 07:34 | disposition home or self-care (01) ==
LOC: HO.LAB 07:33
PROVIDERS: PCP Internal Medicine; Visit Provider Internal Medicine
DX: E11.9 Type 2 diabetes mellitus without complications (principal); E78.00 Pure hypercholesterolemia, unspecified; G47.33 Obstructive sleep apnea (adult) (pediatric); I10 Essential (primary) hypertension
CPT/HCPCS: 36415; 80053; 83036

== ENCOUNTER 2024-01-29 13:39 | Outpatient (AMB) | payer MEDICARE, SELFPAY ==
[2024-01-29 13:51] VITALS: BP 142/80; PULSE 57; BMI 42.7
--- NOTE | 2024-01-29 13:51 | MHC.OFFVIS ---
Vital Signs 01/29/24 13:51 Height 5 ft 2 in Weight 233 lb 3.985 oz BMI 42.7 BP 142/80 H Blood Pressure Location Lt brachial Position Sitting Pulse 57 Pulse Source Monitor Intake Visit Reasons: 1 yr follow up Allergies acetaminophen [Percocet] Allergy (Unknown, Verified 01/29/24 13:53) upset stomach oxycodone [OXYCODONE] Adverse Reaction (Intermediate, Verified 01/29/24 13:53) NAUSEA, VOMITING,HEADACHE Medication List - Last Reconciled 01/29/24 by Su Erwin NP-C amlodipine-benazepril 10-40 mg 1 cap PO DAILY aspirin 81 mg PO DAILY carvedilol 25 mg PO BID hydralazine 50 mg PO BID hydrochlorothiazide 25 mg PO DAILY metformin 1,000 mg PO BID rosuvastatin 40 mg PO DAILY HPI HPI 1 yr follow up: Details: Lydia is a 68-year-old female with past medical history of hypertension, hyperlipidemia, aortic valve calcification, coronary artery dissection with mild NSTEMI in the past who presents for follow-up. Today she reports she has been feeling well since her last visit. She has no cardiac questions or concerns. She denies chest discomfort at rest or with activity. No shortness of breath, palpitations, PND, orthopnea or edema. No dizziness, presyncope, syncope, falls. She walks frequently. No weight loss in the last year. Friend is present. [facility] Medical History HARSHAL I (cervical intraepithelial neoplasia I) High cholesterol Anemia Rheumatism Arthritis Sleep apnea HTN (hypertension) Surgical History History of knee surgery Hx of tubal ligation Family History Mother HTN (hypertension) Social History Household Members Other:: daughter Housing: Apartment Alcohol intake: never Patient Tobacco Use Status: Never used Tobacco Gender identity: Female Female Reproductive History Menstrual Age of Menarche: 14 Review of Systems Const All systems reviewed & are unremarkable except as noted in HPI and below ENT Denies dizziness Card Denies chest pain, Denies chest pain at rest, Denies chest pain with activity, Denies rapid heart rate, Denies pedal edema, Denies edema, Denies leg edema, Denies lightheadedness, Denies palpitations, Denies dyspnea, Denies dyspnea on exertion and Denies orthopnea Resp Denies cough, Denies dyspnea and Denies dyspnea on exertion GI Denies hematochezia and Denies change in stool character Musc Denies abnormal gait, Denies limited range of motion, Denies muscle cramps, Denies muscle weakness, Denies numbness, Denies radiating pain into limb, Denies stiffness and Denies tingling Neuro Denies abnormal gait, Denies dizziness, Denies numbness and Denies tingling Endo Denies palpitations Physical Exam Vital Signs: Last Vital Signs Pulse 57 01/29/24 13:51 BP 142/80 H 01/29/24 13:51 BMI result Body Mass Index 42.7 Const General: cooperative, healthy appearing, comfortable and no acute distress Orientation/consciousness: patient oriented x3 Neck Neck: Yes normal visual inspection and Yes no JVD Resp Effort & Inspection: normal respiratory effort Auscultation: clear to auscultation bilaterally, no crackles, no rales, no rhonchi and no wheezes Cardio Jugular venous distension: no JVD Rate: regular rate Rhythm: regular rhythm Heart sounds: S1 normal heart sound present, S2 normal heart sound present, no murmurs and no rubs Neuro General: patient oriented x3 Extrem General: Yes normal to inspection, No no pedal edema and No calf tenderness Psych Appearance: grossly normal Mental Status: mental status grossly normal Speech and movement: Normal speech and movement present Office Procedures EKG Details: Today, read by me, sinus Cameron with sinus arrhythmia, left axis deviation, nonspecific T-wave abnormality, rate 57, QTC 428 milliseconds. - note setting at 20 mV instead of 10mv [id number], Complete Assessment & Plan Assessment & Plan (1) Coronary artery dissection: Comment: Stable Code(s): I25.42 - Coronary artery dissection Category: Medical Plan: History of NSTEMI, thought to be secondary to coronary artery dissection, managed medically based on prior notes. Her condition has been stable. Echocardiogram done 12/03/2022 shows EF 70%, aortic valve mild calcification, no stenosis, no regional wall motion abnormalities. Today she is here for yearly follow-up and denies any anginal symptoms. EKG done today showing sinus rhythm with sinus arrhythmia, no acute ST or T-wave abnormalities, rate 57. She walks routinely. Continues on daily aspirin, rosuvastatin with LDL goal less than 100, less than 70. Continue carvedilol, amlodipine, benazepril. Blood pressure today initially mildly elevated at 140 2/80, recheck done by me 136/72. Signs and symptoms of angina reviewed with her. Continue risk factor modification with good blood pressure, cholesterol and weight control. Cardiology follow-up in 1 year, sooner if needed. Emergency care if ever needed for symptoms. (2) High cholesterol: Code(s): E78.00 - Pure hypercholesterolemia, unspecified Category: Medical Plan: LDL goal less than 100, ideally less than 70 and patient with hyperlipidemia and coronary artery dissection. Labs done 07/10/2023 shows LDL 74. Continue rosuvastatin. (3) Aortic stenosis: Code(s): I35.0 - Nonrheumatic aortic (valve) stenosis Category: Medical Plan: Echo from 2019 shows mild aortic stenosis. Echocardiogram done 12/03/2022 showing EF 70%, aortic valve mild calcification however no significant stenosis. Will follow with periodic echoes. (4) HTN (hypertension): Code(s): I10 - Essential (primary) hypertension Category: Medical Plan: As above. Continue carvedilol, amlodipine/benazepril, hydralazine, hydrochlorothiazide. No changes made. Plan Time spent on chart review, documentation, interview, assessment Coding Level of Care Code Est Pt Level 3 (23967) Diagnoses Coronary artery dissection I25.42 High cholesterol E78.00 Aortic stenosis I35.0 HTN (hypertension) I10 CPT Codes EKG - CPT: 64721-[id number], Complete ([id number]) Time Spent (min) 24
== END 2024-01-29 14:12 | disposition home or self-care (01) ==
PROVIDERS: PCP Internal Medicine; Visit Provider Nurse Practitioner Family
DX: I25.42 Coronary artery dissection (principal); E78.00 Pure hypercholesterolemia, unspecified; I35.0 Nonrheumatic aortic (valve) stenosis; I10 Essential (primary) hypertension
CPT/HCPCS: 93010; 99213

== ENCOUNTER → 2024-01-29 13:39 | Outpatient (BNVA) | payer MEDICARE, SELFPAY | PROVIDERS: PCP Internal Medicine; Visit Provider Nurse Practitioner Family | DX: I25.42 Coronary artery dissection (principal); I35.0 Nonrheumatic aortic (valve) stenosis; I10 Essential (primary) hypertension; E78.00 Pure hypercholesterolemia, unspecified | CPT/HCPCS: 93005; 99212 ==

== ENCOUNTER 2024-03-11 07:20 | Outpatient (REF) | payer MEDICARE, SELFPAY ==
[2024-03-11 07:57] LABS: Estimated Average Glucose 123 mg/dL; Hemoglobin A1c % 5.9 % (<6.0)
[2024-03-11 08:03] LABS: Alanine Aminotransferase 17 U/L (0-31); Albumin Level 3.9 g/dL (3.5-5.0); Alkaline Phosphatase 78 U/L (39-117); Anion Gap 13 (12-20); Aspartate Amino Transferase 15 U/L (5-31); Bilirubin Total 0.5 mg/dL (0.0-1.0); Blood Urea Nitrogen 16 mg/dL (9-16); Calcium 9.6 mg/dL (8.4-10.2); Carbon Dioxide 25 mmol/L (22-29); Chloride 107 mmol/L (96-108); Estimated Glomerular Filt Rate > 60; Glucose Random 131 mg/dL (60-115); Potassium 3.9 mmol/L (3.3-5.1); Sodium 141 mmol/L (135-145); Total Protein 7.5 g/dL (6.5-8.0)
== END 2024-03-11 07:21 | disposition home or self-care (01) ==
LOC: HO.LAB 07:20
PROVIDERS: PCP Internal Medicine; Visit Provider Internal Medicine
DX: E11.9 Type 2 diabetes mellitus without complications (principal); E78.00 Pure hypercholesterolemia, unspecified; G47.33 Obstructive sleep apnea (adult) (pediatric); I10 Essential (primary) hypertension
CPT/HCPCS: 36415; 80053; 83036

== ENCOUNTER 2024-06-11 07:46 | Outpatient (REF) | payer MEDICARE, SELFPAY ==
[2024-06-11 08:12] LABS: MANUAL DIFF FLAG NO
[2024-06-11 08:34] LABS: Basophils Absolute Auto 0.1 X10*3/uL (0.0-0.2); Basophils Percent Auto 0.7 % (0-2); Eosinophils Absolute Auto 0.4 X10*3/uL (0.0-0.4); Eosinophils Percent Auto 3.8 % (0-4); Hematocrit 41.4 % (37.0-47.0); Hemoglobin 13.4 g/dl (12.0-16.0); Imm Gran Abs Auto 0.03 X10*3/uL (0.00-0.03); Imm Gran Pct Auto 0.3 % (0.0-0.4); Lymphocytes Absolute Auto 2.1 X10*3/uL (1.2-4.9); Lymphocytes Percent Auto 22.8 % (20-40); Mean Corpuscular HGB Conc 32.4 g/dl (31.0-35.0); Mean Corpuscular Hemoglobin 28.1 pg (27.0-33.0); Mean Corpuscular Volume 86.8 fL (80.0-98.0); Mean Platelet Volume 10.4 fL (9.4-12.3); Monocytes Absolute Auto 0.5 X10*3/uL (0.1-1.2); Monocytes Percent Auto 5.6 % (2-11); Neutrophils Absolute Auto 6.1 x10*3/uL (2.0-8.3); Neutrophils Percent Auto 66.8 % (45-73); Platelet Count 230 X10*3/uL (160-400); Red Blood Count 4.77 X10*6/uL (4.20-5.50); Red Cell Distribution Width 15.1 % (11.0-16.0); White Blood Count 9.2 X10*3/uL (4.8-10.8)
[2024-06-11 08:45] LABS: Estimated Average Glucose 126 mg/dL; Hemoglobin A1C 145.0327 umol/L; Total Hemoglobin (HGBA1C) 3412.7614 umol/L
[2024-06-11 09:01] LABS: Alanine Aminotransferase 18 U/L (0-31); Albumin Level 3.9 g/dL (3.5-5.0); Alkaline Phosphatase 89 U/L (39-117); Anion Gap 12 (12-20); Aspartate Amino Transferase 19 U/L (5-31); Bilirubin Total 0.4 mg/dL (0.0-1.0); Blood Urea Nitrogen 20 mg/dL (9-16); Calcium 9.4 mg/dL (8.4-10.2); Carbon Dioxide 26 mmol/L (22-29); Chloride 106 mmol/L (96-108); Cholesterol 142 mg/dL (<200); Estimated Glomerular Filt Rate > 60; Glucose Random 132 mg/dL (60-115); HDL Cholesterol 51 mg/dL (>40); LDL Cholesterol Calculated 77 mg/dL (<100); Potassium 3.9 mmol/L (3.3-5.1); Sodium 140 mmol/L (135-145); Total Protein 7.5 g/dL (6.5-8.0); Triglycerides 71 mg/dL (<150)
[2024-06-11 09:30] LABS: Creatinine Urine 126.49 mg/dL; Microalbum/Creatinine Ratio Ur 11.8 ug/mg cr (<30)
== END 2024-06-11 07:47 | disposition home or self-care (01) ==
LOC: HO.LAB 07:46
PROVIDERS: PCP Internal Medicine; Visit Provider Internal Medicine
DX: E11.9 Type 2 diabetes mellitus without complications (principal); E78.00 Pure hypercholesterolemia, unspecified; G47.33 Obstructive sleep apnea (adult) (pediatric); I10 Essential (primary) hypertension
CPT/HCPCS: 36415; 80053; 80061; 82043; 82570; 83036; 85025

== ENCOUNTER 2024-09-27 12:57 | Outpatient (AMB) | payer OTHER, MEDICAID, SELFPAY ==
--- NOTE | 2024-09-27 13:00 | MHC.OFFVIS ---
Vital Signs 09/27/24 13:08 Height 5 ft 2 in Weight 234 lb BMI 42.8 BP 118/74 Intake Visit Reasons: annual Concrete Buster Operator: Concrete Buster Operator Present (Dinah) Accompanied by: Self / Same As Patient Allergies acetaminophen [Percocet] Allergy (Unknown, Verified 09/27/24 13:01) upset stomach oxycodone [OXYCODONE] Adverse Reaction (Intermediate, Verified 09/27/24 13:01) NAUSEA, VOMITING,HEADACHE HPI Comments Details: Presenting for annual exam. No complaints. Last Pap/HPV was in 09/20 was negative, this was preceded by HARSHAL 1 and 12/19 Last Mammogram was BI-RADS 1 in 10/21 Last Colonoscopy Last DEXA scan [facility] Medical History (Updated 09/27/24 @ 13:12 by Thai Dawkins MD) HARSHAL I (cervical intraepithelial neoplasia I) High cholesterol Anemia Rheumatism Arthritis Sleep apnea HTN (hypertension) Surgical History History of knee surgery Hx of tubal ligation Family History Mother HTN (hypertension) Social History Household Members Other:: daughter Housing: Apartment Alcohol intake: never Patient Tobacco Use Status: Never used Tobacco Gender identity: Female Female Reproductive History Menstrual Age of Menarche: 14 Total pregnancies: 5 Full term: 4 Ab spontaneous: 4 Date of last pap smear: 09/24/23 (negative pap smear, negative hpv) Date of Mammogram: 10/15/23 Review of Systems Const All systems reviewed & are unremarkable except as noted in HPI and below Card Reports as per HPI Resp Reports as per HPI GI Reports as per HPI and Reports no additional complaints Reports as per HPI Physical Exam Const General: cooperative, healthy appearing and comfortable Chest Chest palpation & inspection: normal inspection of the chest and normal palpation of entire chest wall Breast/axilla inspection: normal inspection of the breasts and normal inspection of the axillae Breast/axilla palpation: normal palpation of the breasts, normal palpation of the axillae and no axillary lymphadenopathy Resp Effort & Inspection: normal respiratory effort Auscultation: clear to auscultation bilaterally Percussion: percussion normal Cardio Palpation: normal PMI Rate: regular rate Rhythm: regular rhythm Heart sounds: no murmurs and no rubs Peripheral pulses: Peripheral pulses 2+ throughout GI Inspection: Yes normal to inspection Palpation (GI): Soft to palpation, nontender, no guarding, not rigid and No hepatosplenomegaly present Percussion: Yes normal to percussion Auscultation: normal bowel sounds Rectal Exam - Female: deferred General: Yes bladder normal to palpation External Female Exam: No lesion Speculum Exam - Vagina: normal appearance of the vagina, normal palpation, normal vaginal discharge and not erythematous Speculum Exam - Cervix: normal appearance of the cervix and normal palpation Bimanual exam- vagina & uterus: normal bimanual exam, normal palpation, uterine size normal, bladder normal to palpation, consistency normal and normal palpation Bimanual Exam- Adnexa, other: normal adnexae, no masses and no tenderness Assessment & Plan Assessment & Plan (1) Well woman exam with routine gynecological exam: Code(s): Z01.419 - Encounter for gynecological examination (general) (routine) without abnormal findings Category: Medical Plan: Co testing done Counseled the patient about the recommended dietary allowance of 1200 mg of Calcium & 800 IU of vitamin D. Mammogram ordered. Referred her for screening colonoscopy done. Will order DEXA scan . The patient was instructed to perform monthly self-breast exams and to schedule a 2 week DEXA scan follow-up appointment and an annual exam in a year; All questions answered and the patient verbalized understanding. Orders: Orders XR DEXA axial skeleton Today Z78.0 - Asymptomatic menopausal state MM tomosynthesis screening BI Today Z12.31 - Encounter for screening mammogram for malignant neoplasm of breast Referrals Gastroenterology Referral Z12.11 - Encounter for screening for malignant neoplasm of colon Coding Level of Care Code Est Pt Prev Care >65y(02483) Diagnoses Well woman exam with routine gynecological exam Z01.419
[2024-09-27 13:08] VITALS: BP 118/74; BMI 42.8
--- OUTSIDE RECORDS SUMMARY | 2024-09-27 14:32 | XMS_ITS | Clinical Summary ---
Author Organization [facility] ity Address [address] [place] [address] Care Team Providers Care Tricot Knitting Machine Operator Name Role Phone Unavailable Primary Care Provider Unavailabl e Social History Tobacco Use Types Packs/Day Years Used Date Smoking Tobacco: Never Assessed Comments Unknown Sex and Gender Information Value Date Recorded Sex Assigned at Not on file Legal Sex Female 9:09 AM EST Gender Identity Not on file Sexual Orientation Not on file Plan of Treatment Health Maintenance Due Date Last Done Comments Breast Cancer Screening 1955 DTaP,Tdap,and Td Vaccines (1 - Tdap) 1975 Pneumococcal Vaccine: 50+ Ye ars (1 of 1 - PCV) 2006 Zoster Vaccines (1 of 2) 2006 COVID-19 Vaccine ( - 2023-2 5 season) 2024 Influenza Vaccine (#1) 2024 RSV Immunization Patients 60 + Years Old (1 - 1-dose 75+ series) 2031 HIB Vaccines Aged Out No longer eligi ble based on patient's age to complete this topic HPV Vaccines Aged Out No longer eligi ble based on patient's age to complete this topic Hepatitis A Vaccines Aged Out No long er eligible based on patient's age to complete this topic Hepatitis B Vaccines Aged Out No long er eligible based on patient's age to complete this topic IPV Vaccines Aged Out No longer eligi ble based on patient's age to complete this topic MMR Vaccines Aged Out No longer eligi ble based on patient's age to complete this topic Meningococcal ACWY Vaccine Aged Out N o longer eligible based on patient's age to complete this topic Meningococcal B Vacine Aged Out No lo nger eligible based on patient's age to complete this topic RSV Immunization Patients Un rosalva 20 months Aged Out No longer eligible b ased on patient's age to complete this topic Varicella Vaccines Aged Out No longer eligible based on patient's age to complete this topic
--- OUTSIDE RECORDS SUMMARY | 2024-09-27 14:32 | XMS_ITS | Patient Health Record ---
Author Organization [facility] Address [address] [place] [address] Care Team Providers Care Feed Preparation Operator Name Role Phone Gi Ramirez Primary Care Provider Hugo Turner Unavailable [phone] Allergies Allergen (clinical drug ingredient) Drug/Non Drug Allergy documented on EMR Reaction Allergy Type Onset Date Status acetaminophen / oxycodone Percocet Unknown Drug Allergy Active Reason For Referral No Information Medications Medication SIG (Take, Route, Frequency, Duration) Notes Start Date End Date Status Tylenol PRN Active Carvedilol 25 MG TAKE 1 TABLET BY MONICA TH TWICE A DAY Oral for 90 Active amLODIPine Besy-Benazepril HCl 10-40 MG TAKE 1 CAPSULE BY MOUTH EVERY DAY Oral for 90 Active Atorvastatin Calcium 40 MG TAKE 1 TABLET AT BEDTIME Oral for 90 Active Vitamin D Active Vitamin C Active Vitamin B12 Active Ibuprofen PRN Active Social History Tobacco Use: Social History Observation Description Date Details (start date - stop date) Never Smoker NA - NA Tobacco Use/Smoking Question Answer Notes Patient is a nonsmoker Alcohol Screen Question Answer Notes Did you have a drink containing alcohol in the p ast year? No Did you have a drink containing alcohol in the p ast year? No Points 0 Points 0 Interpretation Negative Section Notes: Nonsmoker; no alcohol Nonsmoker; no alcohol Problems Problem Type SNOMED Code ICD Code Onset Dates Problem Status W/U Status Risk Notes Problem 650787481 Change in bowel habits (R19.4) Active confirmed Problem 41882919 Weight loss (R63.4) Active confirmed Problem 089003074 Nausea (R11.0) Active confirmed Problem 315564122 Early satiety (R68.81) Active confirmed Problem 160852391 LUQ abdominal pain (R10.12) Active confirmed Plan Of Treatment Future Test Test Name Order Date UPPER GI ENDOSCOPY 07/13/2019 COLONOSCOPY 07/13/2019 Insurance Providers Payer Name Payer Address Payer Phone Subscriber Number Group Number Insured Name Patient Relationship to Insured Coverage Start Date Coverage End Date MEDICAID OF [employer] [address] [place] [phone] [id number] DANIELLE THOMAS Self - patient is the insured Medical (General) History Medical History History ICD Code Hyperlipidemia Hypertension TIA--2013 [place] 04/20/19-cardiac cath at [facility]-she reports a 30% occlusion but no stent/no angioplasty--started on Plavix--[place] [facility] [place] Anxiety/Depression Denies DM,CVA,Lung disease,renal disease Arthritis in Left knee-might be having a knee replacement Uterine fibroids Left-sided abdominal discomf ort with gas and bloating since at least 2017. She had a negative CAT scan of the abdomen and pelvis in April of 2019. Negative screening colonoscopy in 07/2019 EGD in 07/2019 with a small H H and mild gastritis--bx negative for hpylori, no Lindsay's, no esophagitis Surgical History Surgery Date(Month/Year) Knee Replacement (left)--Dr. Wang 08/29 020
== END 2024-09-27 13:26 | disposition home or self-care (01) ==
LOC: HO.HWS 12:57
PROVIDERS: PCP Internal Medicine; Visit Provider Obstetrics & Gynecology
DX: Z01.419 Encounter for gynecological examination (general) (routine) without abnormal findings (principal)
CPT/HCPCS: 99397; 99459

== ENCOUNTER 2024-09-27 12:57 | Outpatient (REF) | payer OTHER, MEDICAID, SELFPAY ==
--- OUTSIDE RECORDS SUMMARY | 2024-09-27 15:17 | XMS_ITS | Clinical Summary ---
Author Organization [facility] ity Address [address] [place] [address] Care Team Providers Care Shake Maker Name Role Phone Unavailable Primary Care Provider [...]
[2024-09-30 15:07] LABS: HPV Genotype 16 Negative (Negative); HPV Genotype 18 Negative (Negative); HPV High Risk Negative (Negative)
== END 2024-09-27 12:58 | disposition home or self-care (01) ==
LOC: HO.LNP 12:57
PROVIDERS: PCP Internal Medicine; Visit Provider Obstetrics & Gynecology
DX: Z01.419 Encounter for gynecological examination (general) (routine) without abnormal findings (principal); Z11.51 Encounter for screening for human papillomavirus (HPV); Z87.42 Personal history of other diseases of the female genital tract
CPT/HCPCS: 87626; 88175

== ENCOUNTER 2024-10-11 08:23 | Outpatient (REF) | payer MEDICARE, OTHER, SELFPAY ==
--- OUTSIDE RECORDS SUMMARY | 2024-10-11 08:50 | XMS_ITS | Patient Health Record ---
Author Organization [facility] Address [address] [place] [address] Care Team Providers Care Suspect Artist Name Role Phone Gi Ramirez Primary Care Provider Hugo Turner Unavailable [phone] Allergies Allergen (clinical drug ingredient) Drug/Non Drug [...] Problem Status W/U Status Risk Notes Problem 036899917 Change in bowel habits (R19.4) Active confirmed Problem 91895264 Weight loss (R63.4) Active confirmed Problem 475801415 Nausea (R11.0) Active confirmed Problem 020100524 Early satiety (R68.81) Active confirmed Problem 643444541 LUQ abdominal pain (R10.12) Active confirmed Plan Of Treatment Future Test Test Name Order Date UPPER GI ENDOSCOPY 07/13/2019 COLONOSCOPY 07/13/2019 Insurance Providers Payer Name Payer Address Payer Phone Subscriber Number Group Number Insured Name Patient Relationship to Insured Coverage Start Date Coverage End Date MEDICAID OF [employer] [address] [place] [phone] [id number] DANIELLE THOMAS Self - patient is the insured Medical (General) History Medical History History ICD Code Hyperlipidemia Hypertension TIA--2013 [place] 04/20/19-cardiac cath at [facility]-she reports a 30% occlusion but no stent/no angioplasty--started on Plavix--[place] [facility] [place] Anxiety/Depression Denies DM,CVA,Lung disease,renal disease Arthritis in [...]
--- OUTSIDE RECORDS SUMMARY | 2024-10-11 08:50 | XMS_ITS | Clinical Summary ---
Author Organization [facility] ity Address [address] [place] [address] Care Team Providers Care Quality Supervisor Name Role Phone Unavailable Primary Care Provider [...] - 2023-2 5 season) 2024 Influenza Vaccine (Season Ended) 2025 RSV Immunization Adult Patie nts (1 - 1-dose 75+ series) 2031 HIB [...] age to complete this topic Meningococcal B Vaccine Aged Out No l onger eligible based on patient's age to complete this topic RSV Immunization Patients Un rosalva 20 months Aged Out No longer eligible b ased on patient's age to complete this topic Varicella Vaccines Aged Out No longer eligible based on patient's age to complete this topic
[2024-10-11 09:03] LABS: Estimated Average Glucose 137 mg/dL; Hemoglobin A1C 165.0165 umol/L; Hemoglobin A1c % 6.4 % (<6.0); Total Hemoglobin (HGBA1C) 3568.6181 umol/L
[2024-10-11 09:26] LABS: Alanine Aminotransferase 19 U/L (0-31); Alkaline Phosphatase 81 U/L (39-117); Anion Gap 10 (12-20); Aspartate Amino Transferase 22 U/L (5-31); Bilirubin Total 0.5 mg/dL (0.0-1.0); Blood Urea Nitrogen 20 mg/dL (9-16); Calcium 9.5 mg/dL (8.4-10.2); Carbon Dioxide 29 mmol/L (22-29); Chloride 104 mmol/L (96-108); Estimated Glomerular Filt Rate > 60; Glucose Random 150 mg/dL (60-115); Potassium 3.8 mmol/L (3.3-5.1); Sodium 139 mmol/L (135-145); Total Protein 7.5 g/dL (6.5-8.0)
== END 2024-10-11 08:24 | disposition home or self-care (01) ==
LOC: HO.LAB 08:23
PROVIDERS: PCP Internal Medicine; Visit Provider Internal Medicine
DX: E11.9 Type 2 diabetes mellitus without complications (principal); E78.00 Pure hypercholesterolemia, unspecified; I10 Essential (primary) hypertension; Z68.41 Body mass index [BMI] 40.0-44.9, adult
CPT/HCPCS: 36415; 80053; 83036

== ENCOUNTER 2024-11-16 13:31 | Outpatient (REF) | payer MEDICARE, OTHER, SELFPAY ==
--- NOTE | ~2024-11-16 | MM_ITS ---
EXAMINATION: DXA BONE DENSITY AXIAL HISTORY: Z78.0 - Asymptomatic menopausal state TECHNIQUE: [email or web address] Dual energy absorptiometry (DEXA) of the lumbar spine, total left hip, and femoral neck was performed. COMPARISON: There are no prior studies for comparison. FINDINGS: The bone mineral density of the lumbar spine is 1.094 with a T-score of -0.7, and a Z-score of -0.2. This is indicative of normal bone mineral density. The bone mineral density of the left total hip is 0.880 with a T-score of -1.0, and a Z-score of -0.5. This is indicative of normal bone mineral density. The bone mineral density of the left femoral neck is 0.662 with a T-score of -2.7, and a Z-score of -1.9. This is indicative of osteoporosis. FRACTURE RISK: The FRAX index suggests a risk of major osteoporotic fracture of 10.2%, and of hip fracture 2.7%. MM/XR DEXA axial skeleton IMPRESSION: Based on bone mineral density, and according to World Health Organization (WHO) criteria, the diagnosis is consistent with osteoporosis. All bone density values are in grams per centimeter squared (g/cm2). Statistically, 68% of repeat scans fall within 1 SD (+/- 0.010 g/cm2 for AP spine L1-L4) and 1 SD (+/- 0.012 g/cm2 for femur total) FRAX is a trademark of the [employer]'s [place] for Metabolic Bone Disease, a World Health Organization (WHO) Collaborating Center. Electronically signed by: Hugo Erickson MD 11/16/2024 03:14 PM EDT
--- OUTSIDE RECORDS SUMMARY | 2024-11-16 14:43 | XMS_ITS | Patient Health Record ---
Author Organization [facility] Address [address] [place] [address] Care Team Providers Care Car Repairer Apprentice Name Role Phone Gi Ramirez Primary Care Provider Hugo Turner Unavailable [phone] Allergies Allergen (clinical drug ingredient) Drug/Non Drug [...] Problem Status W/U Status Risk Notes Problem 930877008 Change in bowel habits (R19.4) Active confirmed Problem 53782678 Weight loss (R63.4) Active confirmed Problem 904328763 Nausea (R11.0) Active confirmed Problem 228333089 Early satiety (R68.81) Active confirmed Problem 754796779 LUQ abdominal pain (R10.12) Active confirmed Plan Of Treatment Future Test Test Name Order Date UPPER GI ENDOSCOPY 07/13/2019 COLONOSCOPY 07/13/2019 Insurance Providers Payer Name Payer Address Payer Phone Subscriber Number Group Number Insured Name Patient Relationship to Insured Coverage Start Date Coverage End Date MEDICAID OF [employer] [address] [place] [phone] [id number] DANIELLE THOMAS Self - patient is the insured Medical (General) History Medical History History ICD Code Hyperlipidemia Hypertension TIA--2012 [place] 04/20/19-cardiac cath at [facility]-she reports a 30% occlusion but no stent/no angioplasty--started on Plavix--se[place] Dr. Blunt at [facility] [place] Anxiety/Depression Denies DM,CVA,Lung disease,renal disease Arthritis in [...]
--- OUTSIDE RECORDS SUMMARY | 2024-11-16 14:43 | XMS_ITS | Clinical Summary ---
Author Organization [facility] ity Address [address] [place] [address] Care Team Providers Care Chemical Inspector Name Role Phone Unavailable Primary Care Provider [...]
== END 2024-11-16 13:32 | disposition home or self-care (01) ==
LOC: HO.MAMMO 13:31
PROVIDERS: PCP Internal Medicine; Visit Provider Obstetrics & Gynecology
DX: Z12.31 Encounter for screening mammogram for malignant neoplasm of breast (principal); Z13.820 Encounter for screening for osteoporosis; Z78.0 Asymptomatic menopausal state
CPT/HCPCS: 77063; 77067; 77080

== ENCOUNTER → 2024-11-16 14:00 | Outpatient (BNV) | payer MEDICARE, SELFPAY | PROVIDERS: PCP Internal Medicine; Visit Provider Radiology Diagnostic Radiology | DX: Z12.31 Encounter for screening mammogram for malignant neoplasm of breast (principal) | CPT/HCPCS: 77063; 77067 ==

== ENCOUNTER 2024-12-07 15:07 | Outpatient (AMB) | payer MEDICARE, SELFPAY ==
--- NOTE | 2024-12-07 15:16 | A.OFFVIS_ITS ---
Intake Visit Reasons: dexa follow up Family Service Worker: Family Service Worker Present (Dinah) Accompanied by: Self / Same As Patient Allergies acetaminophen [Percocet] Allergy (Unknown, Verified 12/07/24 15:17) upset stomach oxycodone [OXYCODONE] Adverse Reaction (Intermediate, Verified 12/07/24 15:17) NAUSEA, VOMITING,HEADACHE HPI Comments Details: The patient is presenting for follow up regarding DEXA scan results which showed the following: The bone mineral density of the lumbar spine is 1.094 with a T- score of -0.7, and a Z-score of -0.2. This is indicative of normal bone mineral density. The bone mineral density of the left total hip is 0.880 with a T-score of -1.0, and a Z-score of -0.5. This is indicative of normal bone mineral density. The bone mineral density of the left femoral neck is 0.662 with a T-score of -2.7, and a Z-score of -1.9. This is indicative of osteoporosis. FRACTURE RISK: The FRAX index suggests a risk of major osteoporotic fracture of 10.2%, and of hip fracture 2.7%. [facility] Medical History HARSHAL I (cervical intraepithelial neoplasia I) High cholesterol Anemia Rheumatism Arthritis Sleep apnea HTN (hypertension) Surgical History History of knee surgery Hx of tubal ligation Family History Mother HTN (hypertension) Social History Household Members Other:: daughter Housing: Apartment Alcohol intake: never Patient Tobacco Use Status: Never used Tobacco Gender identity: Female Female Reproductive History Menstrual Age of Menarche: 14 Review of Systems Const All systems reviewed & are unremarkable except as noted in HPI and below Reports as per HPI and Reports no additional complaints GI Reports no additional complaints Reports no additional complaints Assessment & Plan Assessment & Plan (1) Osteoporosis: Code(s): M81.0 - Age-related osteoporosis without current pathological fracture Category: Medical Plan: Discussed with the patient the DEXA results and FRAX risk. Discussed with the patient all the options for therapeutic treatment including mechanism of actions, risks and benefits of Bisphosphonates (benefits=osteoporosis prevention; Risks=GERD, osteonecrosis of jaw), Raloxifene, (benefits=osteoporosis prevention and breast ca risk reduction; Risks=DVT), Forteo. The patient decided to go ahead with Fosamax so instructions given to the pt on how to take the med: NPO x 30 minutes, large amount of water , stay upright x 30 minutes, inform her dentist of alendronate intake in case invasive dental work. Also Caltrate+D 600 mg x2/day was recommended to the patient. Medications: New alendronate 70 mg PO QWEEK 14 tabs 3RF Coding Level of Care Code Est Pt Level 3 (53942) Diagnoses Osteoporosis M81.0
--- OUTSIDE RECORDS SUMMARY | 2024-12-07 18:12 | XMS_ITS | Clinical Summary ---
Author Organization [facility] ity Address [address] [place] [address] Care Team Providers Care Community Health Specialist Name Role Phone Unavailable Primary Care Provider [...]
== END 2024-12-07 15:32 | disposition home or self-care (01) ==
LOC: HO.HWS 15:07
PROVIDERS: PCP Internal Medicine; Visit Provider Obstetrics & Gynecology
DX: M81.0 Age-related osteoporosis without current pathological fracture (principal)
CPT/HCPCS: 99213

== ENCOUNTER → 2024-12-07 15:07 | Outpatient (BNVA) | payer MEDICARE, SELFPAY | PROVIDERS: PCP Internal Medicine; Visit Provider Obstetrics & Gynecology | DX: M81.0 Age-related osteoporosis without current pathological fracture (principal) | CPT/HCPCS: 99212 ==

== ENCOUNTER 2025-02-03 13:48 | Outpatient (AMB) | payer MEDICARE, SELFPAY ==
--- OUTSIDE RECORDS SUMMARY | 2025-02-03 13:54 | XMS_ITS | Clinical Summary ---
Author Organization [facility] ity Address [address] [place] [address] Care Team Providers Care Supervisor [employer] Name Role Phone Unavailable Primary Care Provider [...] Vaccines (1 of 2) 2006 COVID-19 Vaccine (1 - 2023-2 5 season) 2024 Depression Screening 06/30/2024 Influenza Vaccine (#1) 2025 RSV Immunization Adult Patie nts (1 [...]
--- OUTSIDE RECORDS SUMMARY | 2025-02-03 13:54 | XMS_ITS | Patient Health Record ---
Author Organization [facility] Address [address] [place] [address] Care Team Providers Care Laundry Machine Operator Name Role Phone Gi Ramirez Primary Care Provider Hugo Turner Unavailable [phone] Allergies Allergen (clinical drug ingredient) Drug/Non Drug [...] Problem Status W/U Status Risk Notes Problem 796331959 Change in bowel habits (R19.4) Active confirmed Problem 33652193 Weight loss (R63.4) Active confirmed Problem 252468260 Nausea (R11.0) Active confirmed Problem 050385285 Early satiety (R68.81) Active confirmed Problem 225270647 LUQ abdominal pain (R10.12) Active confirmed Plan Of Treatment Future Test Test Name Order Date UPPER GI ENDOSCOPY 07/13/2019 COLONOSCOPY 07/13/2019 Insurance Providers Payer Name Payer Address Payer Phone Subscriber Number Group Number Insured Name Patient Relationship to Insured Coverage Start Date Coverage End Date MEDICAID OF [employer] [address] [place] [phone] [id number] DANIELLE THOMAS Self - patient is the insured Medical (General) History Medical History History ICD Code Hyperlipidemia Hypertension TIA--2012 [place] 04/20/19-cardiac cath at [facility]-she reports a 30% occlusion but no stent/no angioplasty--started on Plavix--se[place] Blunt [place] [facility] [place] Anxiety/Depression Denies DM,CVA,Lung disease,renal disease Arthritis in [...]
[2025-02-03 14:07] VITALS: BP 114/72; PULSE 57; BMI 43.1
--- NOTE | 2025-02-03 14:07 | MHC.OFFVIS ---
Vital Signs 02/03/25 14:07 Height 5 ft 2 in Weight 235 lb 7.259 oz BMI 43.1 BP 114/72 Blood Pressure Location Lt brachial Position Sitting Pulse 57 Pulse Source Monitor Intake Visit Reasons: 1 yr follow up Application Integration Engineer Required: No Allergies acetaminophen (Percocet) Allergy (Unknown, Verified 02/03/25 14:12) upset stomach oxycodone (OXYCODONE) Adverse Reaction (Intermediate, Verified 02/03/25 14:12) NAUSEA, VOMITING,HEADACHE Medication List - Last Reconciled 02/03/25 by Su Erwin NP-C alendronate 70 mg PO QWEEK amlodipine-benazepril 10-40 mg 1 cap PO DAILY aspirin 81 mg PO DAILY carvedilol 25 mg PO BID hydralazine 50 mg PO BID hydrochlorothiazide 25 mg PO DAILY metformin ER 750 mg PO BID rosuvastatin 40 mg PO DAILY HPI HPI 1 yr follow up: Details: Lydia is a 69-year-old female with past medical history of hypertension, hyperlipidemia, aortic valve sclerosis, coronary artery dissection with mild NSTEMI in the past who presents for follow-up. Her last prior visit was 01/29/2024. Today she reports she has been feeling well since her last visit. She denies chest discomfort at rest or with activity. No shortness of breath, palpitations, PND, orthopnea or edema. No dizziness, presyncope, syncope, falls. She walks frequently. No weight loss in the last year. Walks frequently and says she tolerates it well. She has no cardiac questions or concerns. [facility] Medical History HARSHAL I (cervical intraepithelial neoplasia I) High cholesterol Anemia Rheumatism Arthritis Sleep apnea HTN (hypertension) Surgical History History of knee surgery Hx of tubal ligation Family History Mother HTN (hypertension) Social History Household Members Other:: daughter Housing: Apartment Alcohol intake: never Patient Tobacco Use Status: Never used Tobacco Gender identity: Female Female Reproductive History Menstrual Age of Menarche: 14 Review of Systems Const All systems reviewed & are unremarkable except as noted in HPI and below ENT Denies dizziness Card Denies chest pain, Denies chest pain at rest, Denies chest pain with activity, Denies rapid heart rate, Denies pedal edema, Denies edema, Denies leg edema, Denies lightheadedness, Denies palpitations, Denies dyspnea, Denies dyspnea on exertion and Denies orthopnea Resp Denies cough, Denies dyspnea and Denies dyspnea on exertion GI Denies hematochezia and Denies change in stool character Musc Denies abnormal gait, Denies limited range of motion, Denies muscle cramps, Denies muscle weakness, Denies numbness, Denies radiating pain into limb, Denies stiffness and Denies tingling Neuro Denies abnormal gait, Denies dizziness, Denies numbness and Denies tingling Endo Denies palpitations Physical Exam Vital Signs: Last Vital Signs Pulse 57 02/03/25 14:07 BP 114/72 02/03/25 14:07 BMI result Body Mass Index 43.1 Const General: cooperative, healthy appearing, comfortable and no acute distress Orientation/consciousness: patient oriented x3 Neck Neck: Yes normal visual inspection and Yes no JVD Resp Effort & Inspection: normal respiratory effort Auscultation: clear to auscultation bilaterally, no crackles, no rales, no rhonchi and no wheezes Cardio Jugular venous distension: no JVD Rate: regular rate Rhythm: regular rhythm Heart sounds: S1 normal heart sound present, S2 normal heart sound present, no murmurs and no rubs Neuro General: patient oriented x3 Extrem General: Yes normal to inspection, No no pedal edema and No calf tenderness Psych Appearance: grossly normal Mental Status: mental status grossly normal Speech and movement: Normal speech and movement present Office Procedures EKG Details: Today, read by me, sinus bradycardia with sinus arrythmia, PACs, ist degree avb, [place] interval 224ms, Rate 57, Qtc 434ms [id number], Complete Assessment & Plan Assessment & Plan (1) Coronary artery dissection: Comment: Stable Code(s): I25.42 - Coronary artery dissection Category: Medical Plan: History of NSTEMI, thought to be secondary to coronary artery dissection, managed medically based on prior notes. Her condition has been stable since that time. Last Echocardiogram done 12/03/2022 shows EF 70%, aortic valve mild calcification, no stenosis, no regional wall motion abnormalities. EKG today showing sinus rhythm with sinus arrhythmia, Pac, first-degree AV block, rate 57. Labs done 10/11/2024 show creatinine 0.81, potassium 3.8. Continue daily aspirin, rosuvastatin with LDL goal less than 100, less than 70. Continue carvedilol, amlodipine, benazepril. Signs and symptoms of angina reviewed with her. Continue risk factor modification with good blood pressure, cholesterol and weight control. Cardiology follow-up in 1 year, sooner if needed. Emergency care if ever needed for symptoms. (2) High cholesterol: Code(s): E78.00 - Pure hypercholesterolemia, unspecified Category: Medical Plan: LDL goal less than 100, ideally less than 70 and patient with hyperlipidemia and coronary artery dissection. Labs done 06/11/2024 shows LDL 77. Continue rosuvastatin. (3) Aortic stenosis: Code(s): I35.0 - Nonrheumatic aortic (valve) stenosis Category: Medical Plan: Echo from 2019 shows mild aortic stenosis. Echocardiogram done 12/03/2022 showing EF 70%, aortic valve mild calcification however no significant stenosis. Will check echo before next visit. (4) HTN (hypertension): Code(s): I10 - Essential (primary) hypertension Category: Medical Plan: Blood pressure goal less than 130/80. Well controlled at this time. Continue carvedilol, amlodipine/benazepril, hydralazine, hydrochlorothiazide. No changes made. Plan Time spent on chart review, documentation, interview, assessment Orders: Orders CA echo transthoracic complete 01/23/26 I25.42 - Coronary artery dissection, I35.0 - Nonrheumatic aortic (valve) stenosis Coding Level of Care Code Est Pt Level 4 (53478) Complex EM visit Add On G2211 Diagnoses Coronary artery dissection I25.42 High cholesterol E78.00 Aortic stenosis I35.0 HTN (hypertension) I10 CPT Codes EKG - CPT: 51502-[id number], Complete ([id number]) Time Spent (min) 28
== END 2025-02-03 14:31 | disposition home or self-care (01) ==
LOC: HO.HCS 13:49
PROVIDERS: PCP Internal Medicine; Visit Provider Nurse Practitioner Family
DX: I25.42 Coronary artery dissection (principal); E78.00 Pure hypercholesterolemia, unspecified; I35.0 Nonrheumatic aortic (valve) stenosis; I10 Essential (primary) hypertension
CPT/HCPCS: 93010; 99214; G2211

== ENCOUNTER → 2025-02-03 13:48 | Outpatient (BNVA) | payer MEDICARE, SELFPAY | PROVIDERS: PCP Internal Medicine; Visit Provider Nurse Practitioner Family | DX: I25.42 Coronary artery dissection (principal); I35.0 Nonrheumatic aortic (valve) stenosis; I10 Essential (primary) hypertension; E78.00 Pure hypercholesterolemia, unspecified; R00.1 Bradycardia, unspecified; I49.8 Other specified cardiac arrhythmias; I44.0 Atrioventricular block, first degree | CPT/HCPCS: 93005; 99212 ==

== ENCOUNTER 2025-04-18 07:26 | Outpatient (REF) | payer MEDICARE, SELFPAY ==
--- OUTSIDE RECORDS SUMMARY | 2025-04-18 07:31 | XMS_ITS | Patient Health Record ---
Author Organization [facility] Address [address] [place] [address] Care Team Providers Care Rumper Name Role Phone Gi Ramirez Primary Care Provider Hugo Turner Unavailable [phone] Allergies Allergen (clinical drug ingredient) Drug/Non Drug Allergy documented on EMR Reaction Allergy Type Onset Date Status acetaminophen / oxycodone Percocet Unknown Drug Allergy Active Reason For Referral No Information Medications Medication SIG (Take, Route, Frequency, Duration) Notes Start Date End Date Status Tylenol PRN Active Carvedilol 25 MG TAKE 1 TABLET BY MONICA TH TWICE A DAY Oral; Duration: 90 Active amLODIPine Besy-Benazepril HCl 10-40 MG TAKE 1 CAPSULE BY MOUTH EVERY DAY Oral; Duration: 90 Active Atorvastatin Calcium 40 MG TAKE 1 TABLET AT BEDTIME Oral; Duration: 90 Active Vitamin D Active Vitamin C [...] Problem Status W/U Status Risk Notes Problem Change in bowel habit (69639787) Change in bowel habits (R19.4) Active confirmed Problem Weight loss (787368244) Weight loss (R63.4) Active confirmed Problem Nausea (934530952) Nausea (R11.0) Active confirmed Problem Early satiety (648332459) Early satiety (R68.81) Active confirmed Problem Left upper quadrant pain (854319971) LUQ abdominal pain (R10.12) Active confirmed Plan Of Treatment Future Test Test Name Order Date UPPER GI ENDOSCOPY 07/13/2019 COLONOSCOPY 07/13/2019 Insurance Providers Payer Name Payer Address Payer Phone Subscriber Number Group Number Insured Name Patient Relationship to Insured Coverage Start Date Coverage End Date [facility] [address] [place] [phone] [id number] DANIELLE THOMAS Self - patient is the insured Medical (General) History Medical History History ICD Code Hyperlipidemia Hypertension TIA--2013 [place] 04/20/19-cardiac cath at [facility]-she reports a 30% occlusion but no stent/no angioplasty--started on Plavix--sees Dr. Blunt at [facility] [place] Anxiety/Depression Denies DM,CVA,Lung disease,renal disease Arthritis in [...]
--- OUTSIDE RECORDS SUMMARY | 2025-04-18 07:31 | XMS_ITS | Clinical Summary ---
Author Organization [facility] ity Address [address] [place] [address] Care Team Providers Care Petroleum Analyst Name Role Phone Unavailable Primary Care Provider [...] 2006 Zoster Vaccines (1 of 2) 2006 Depression Screening 06/30/2024 COVID-19 Vaccine (1 - 2023-2 5 season) 2025 Influenza Vaccine (#1) 2025 RSV Immunization Adult [...]
[2025-04-18 08:22] LABS: Alanine Aminotransferase 21 U/L (0-31); Albumin Level 4.2 g/dL (3.5-5.0); Alkaline Phosphatase 68 U/L (39-117); Anion Gap 16 (12-20); Aspartate Amino Transferase 20 U/L (5-31); Blood Urea Nitrogen 24 mg/dL (9-16); Calcium 9.0 mg/dL (8.4-10.2); Carbon Dioxide 24 mmol/L (22-29); Chloride 104 mmol/L (96-108); Estimated Glomerular Filt Rate > 60; Potassium 3.9 mmol/L (3.3-5.1); Sodium 140 mmol/L (135-145); Total Protein 7.6 g/dL (6.5-8.0)
== END 2025-04-18 07:27 | disposition home or self-care (01) ==
LOC: HO.LAB 07:26
PROVIDERS: PCP Internal Medicine; Visit Provider Internal Medicine
DX: E11.9 Type 2 diabetes mellitus without complications (principal); I10 Essential (primary) hypertension; E78.00 Pure hypercholesterolemia, unspecified; Z68.41 Body mass index [BMI] 40.0-44.9, adult
CPT/HCPCS: 36415; 80053; 83036